=== PATIENT | female | born 1995 | race Caucasian/White ===

== ENCOUNTER 2016-12-03 20:45 | Inpatient (IN) | payer OTHER ==
[2016-12-03 21:25] VITALS: BMI 21.9
--- NOTE | 2016-12-03 21:32 | HP ---
COWS - Scale Resting Pulse: 2= [place] 101-120 Sweatin=Flushed/Facial Moisture Restless Observation: 3= Extraneous Movement Pupil Size: 2= Moderately Dilated Bone or Joint Aches: 2= Severe Diffuse Aches Runny Nose/ Eye Tearin= Runny Nose/Eyes GI Upset > 30mins: 3= Vomiting/Diarrhea Tremor Observation: 2= Slight Tremor Visible Yawning Observation: 2= >3x During Session Anxiety or Irritability: 2=Irritable/Anxious Goose Flesh Skin: 0=Smooth Skin COWS Score: 22 CIWA Score - CIWA Score Nausea/Vomitin Muscle Tremors: 3 Anxiety: 3 Agitation: 2 Paroxysmal Sweats: 2 Orientation: 0-Oriented Tacttile Disturbances: 2-Mild Itch/Numbness/Burn Auditory Disturbances: 2-Mild Harshness/Frighten Visual Disturbances: 2-Mild Sensitivity Headache: 2-Mild CIWA-Ar Total Score: 21 Admission ROS BHS - HPI Chief Complaint: i need help to stop using drugs heroin,xanax,cocaine and marijuana Allergies/Adverse Reactions: Allergies Allergy/AdvReac Type Severity Reaction Status Date / Time No Known Drug Allergies Allergy Verified 12/03/16 21:14 History of Present Illness: this 21 years old female with polysubstances dependence,heroin,cocaine,xanax and marijuana,withdrawal symptom, multiple admissions in detox,last [facility] in 09/20 seeking help to stop usings drugs history of anxiety and insomnia hepatitis c under the care of pmd longest period of sobriety 9 months Exam Limitations: No Limitations - Ebola screening Have you traveled outside of the country in the last 21 days: No (N) Have you had contact with anyone from an Ebola affected area: No Have you been sick,other than usual withdrawal symptoms: No Do you have a fever: No - Review of Systems Constitutional: Chills, Diaphoresis, Loss of Appetite, Malaise, Night Sweats, Changes in sleep, Weakness EENT: reports: Tearing, Nose Congestion Respiratory: reports: No Symptoms reported Cardiac: reports: Palpitations GI: reports: Diarrhea, Nausea, Poor Appetite, Vomiting : reports: No Symptoms Reported Musculoskeletal: reports: Back Pain, Joint Pain, Muscle Pain, Joint Stiffness Integumentary: reports: Dryness Neuro: reports: Headache, Seizure, Tremors Endocrine: reports: No Symptoms Reported Hematology: reports: No Symptoms Reported Psychiatric: reports: Anxious (insomnia) Patient History - Patient Medical History Hx Anemia: No Hx Asthma: No Hx Chronic Obstructive Pulmonary Disease (COPD): No Hx Cancer: No Hx Cardiac Disorders: No Hx Congestive Heart Failure: No Hx Hypertension: No Hx Hypercholesterolemia: No Hx Pacemaker: No HX Cerebrovascular Accident: No Hx Seizures: Yes (Drug-related/ Last episode 10/22) Hx Dementia: No Hx Diabetes: No Hx Gastrointestinal Disorders: No Hx Liver Disease: No Hx Genitourinary Disorders: No Hx Sexually Transmitted Disorders: No Hx Renal Disease (ESRD): No Hx Thyroid Disease: No Hx Human Immunodeficiency Virus (HIV): No (last 09/20 negagive) Hx Hepatitis C: Yes (under the care of pmd) Hx Depression: No Hx Suicide Attempt: Yes (cutter) Hx Bipolar Disorder: No Hx Schizophrenia: No Other Medical History: no suicida,no homicidal - Patient Surgical History Past Surgical History: No Hx Neurologic Surgery: No Hx Cataract Extraction: No Hx Cardiac Surgery: No Hx Lung Surgery: No Hx Breast Surgery: No Hx Breast Biopsy: No Hx Abdominal Surgery: No Hx Appendectomy: No Hx Cholecystectomy: No Hx Genitourinary Surgery: No Hx Section: No Hx Orthopedic Surgery: No Anesthesia Reaction: No - PPD History Previous Implant?: Yes Documented Results: Negative w/o proof Implanted On Prior R Admission?: No PPD to be Administered?: Yes - Reproductive History Patient is a Female of Child Bearing Age (11 -55 yrs old): Yes Last Menstrual Period: 10/01/17 Patient : No - Smoking Cessation Smoking history: Current every day smoker Have you smoked in the past 12 months: Yes Aproximately how many cigarettes per day: 20 Cigars Per Day: 0 Hx Chewing Tobacco Use: No Initiated information on smoking cessation: Yes 'Breaking Loose' booklet given: 12/03/16 - Substances Abused Heroin Route: Injection Frequency: Daily Amount used: 10 bags Age of first use: 14 Date of Last Use: 12/02/16 Alprazolam (Xanax) Route: Oral Frequency: Daily Amount used: 4mg Age of first use: 16 Date of Last Use: 12/02/16 Cocaine Route: Injection Frequency: Daily Amount used: $50 Age of first use: 14 Date of Last Use: 02/28/17 Marijuana/Hashish Route: Smoking Frequency: Daily Amount used: $20 Age of first use: 13 Date of Last Use: 12/03/16 Family Disease History - Family Disease History Family Disease History: Other: Father (alcohol) Admission Physical Exam [facility] - Vital Signs Vital Signs: Vital Signs - 24 hr 12/03/16 21:22 Temperature 97.1 F L Pulse Rate 113 H Respiratory 18 Rate Blood Pressure 129/85 - Physical General Appearance: Yes: Moderate Distress, Tremorous, Irritable, Sweating, Anxious HEENTM: Yes: Nasal Congestion, Rhinorrhea Respiratory: Yes: Lungs Clear Neck: Yes: Within Normal Limits Breast: Yes: Breast Exam Deferred Cardiology: Yes: Tachycardia Abdominal: Yes: Within Normal Limits, Normal Bowel Sounds, Non Tender, Flat, Soft Genitourinary: Yes: Within Normal Limits Back: Yes: Muscle Spasm Extremities: Yes: Tremors Neurological: Yes: Within Normal Limits, 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 intact, Fully Oriented, Alert, Motor Strength 5/5 Integumentary: Yes: Dry, Track [place], Other (cutter scars both forearms) Lymphatic: Yes: Within Normal Limits - Diagnostic (1) Opioid dependence with withdrawal Current Visit: Yes Status: Acute (2) Uncomplicated sedative, hypnotic or anxiolytic withdrawal Current Visit: Yes Status: Acute (3) Cocaine dependence Current Visit: Yes Status: Acute (4) Cannabis dependence Current Visit: Yes Status: Acute (5) Seizure Current Visit: Yes Status: Acute (6) Nicotine dependence Current Visit: Yes Status: Acute (7) Anxiety Current Visit: Yes Status: Acute (8) Insomnia Current Visit: Yes Status: Acute (9) Hepatitis C Current Visit: Yes Status: Acute Cleared for Admission [facility] - Detox or Rehab [facility] Level of Care: Medically Managed Detox Regimen/Protocol: Methadone/Valium [facility] Breath Alcohol Content Breath Alcohol Content: 0 Urine Pregancy Test - Result Urine Test Results: Negative- NO Line Present Urine Drug Screen - Results Drug Screen Negative: No Urine Drug Screen Results: THC-Marijuana, DIAMOND-Cocaine, OPI-Opiates, BZO- Benzodiazepines, OXY-Oxycodone
[2016-12-03] MEDS ORDERED: MAGNESIUM CITRATE 300 ML BOTTLE PO PRN (21:41)
[2016-12-03] MEDS ORDERED: ACETAMINOPHEN 325 MG TABLET (FP) PO PRN (21:41)
[2016-12-03] MEDS ORDERED: P-EPHED 60MG/TRIPROLIDI 2.5MG TABLET PO PRN (21:41)
[2016-12-03] MEDS ORDERED: MAGNESIUM HYDROX 2400MG/30ML ORAL SUSPENSION 30 ML CUP PO PRN (21:41)
[2016-12-03] MEDS ORDERED: IBUPROFEN 400 MG TABLET (FP) PO PRN (21:41)
[2016-12-03] MEDS ORDERED: diphenhydrAMINE HCL 50 MG CAPSULE PO PRN (21:41)
[2016-12-03] MEDS ORDERED: hydrOXYzine PAMOATE 25 MG CAPSULE (FP) PO PRN (21:41)
[2016-12-03] MEDS ORDERED: diazePAM 5 MG TABLET PO ONE (21:41)
[2016-12-03] MEDS ORDERED: MENTHOL/PHENOL 1 EACH UD MM PRN (21:41)
[2016-12-03] MEDS ORDERED: guaiFENesin/D-METHORPHAN HB 10 ML UNIT-DOSE CUPS PO PRN (21:41)
[2016-12-03] MEDS ORDERED: LOPERAMIDE HCL 2 MG CAPSULE PO PRN (21:41)
[2016-12-03] MEDS ORDERED: METHADONE HCL 10 MG TABLET (FOR DETOX USE ONLY) PO ONE ×2 (21:41→23:00)
[2016-12-03] MEDS ORDERED: NICOTINE POLACRILEX 2 MG GUM BC PRN (21:41)
[2016-12-03] MEDS ORDERED: MAG HYDROX/AL HYDROX/SIMETH 30 ML UNIT-DOSE CUP PO PRN (21:41)
[2016-12-03] MEDS ORDERED: diazePAM 5 MG TABLET PO PRN (21:41)
[2016-12-03] MEDS ORDERED: CYCLOBENZAPRINE HCL 10 MG TABLET (FP) PO PRN (21:45)
[2016-12-03] MEDS ORDERED: THIAMINE HCL 100 MG TABLET (FP) PO SCH (22:00)
[2016-12-03] MEDS: cloNIDine HCL 0.1 MG TABLET PO SCH (22:28)
[2016-12-03 22:49] LABS: URINE APPEARANCE CLEAR; URINE BILIRUBIN NEGATIVE (NEGATIVE); URINE BLOOD NEGATIVE (NEGATIVE); URINE COLOR YELLOW; URINE GLUCOSE (UA) NEGATIVE (NEGATIVE); URINE KETONE TRACE (NEGATIVE); URINE LEUK ESTERASE NEGATIVE (NEGATIVE); URINE NITRITE NEGATIVE (NEGATIVE); URINE PROTEIN NEGATIVE (NEGATIVE); URINE UROBILINOGEN NEGATIVE E.U./dl (0.2-1.0)
[2016-12-03] MEDS: diazePAM 5 MG TABLET PO SCH (22:53)
[2016-12-04] MEDS: diazePAM 5 MG TABLET PO SCH ×2 (07:30→13:53)
--- NOTE | 2016-12-04 09:47 | CONSULT ---
[facility] Psychiatric Consult - Data Date of interview: 12/04/16 Admission source: [facility] Identifying data: This is 21 years old female with no psychiatric hospitalization history intoxicated with: Cannabis, Cocaine, Heroin, Xanax, Nictoine Substance Abuse History: - Smoking Cessation. Smoking history: Current every day smoker. Have you smoked in the past 12 months: Yes. Aproximately how many cigarettes per day: 20. Cigars Per Day: 0. Hx Chewing Tobacco Use: No. Initiated information on smoking cessation: Yes. 'Breaking Loose' booklet given : 12/03/16. - Substances Abused. Heroin. Route: Injection. Frequency: Daily. Amount used: 10 bags. Age of first use: 14. Date of Last Use: . Alprazolam (Xanax). Route: Oral. Frequency: Daily. Amount used: 4mg. Age of first use: 16. Date of Last Use: 12/02/16. Cocaine. Route: Injection. Frequency: Daily. Amount used: $50. Age of first use: 14. Date of Last Use: 12/03/16. Marijuana/Hashish. Route: Smoking. Frequency: Daily. Amount used: $20. Age of first use: 13. Date of Last Use: 12/03/16 Medical History: Denies Psychiatric History: Reports insomnia, reprotsd taking Trazpodone 100mg po qhs with good response Physical/Sexual Abuse/Trauma History: Denies Additional Comment: Trazpodone 100mg po qhs Mental Status Exam - Mental Status Exam Alert and Oriented to: Person Cognitive Function: Fair Patient Appearance: Unkempt Mood: Sad Affect: Flat Patient Behavior: Sedated Speech Pattern: Delayed Voice Loudness: Mildly Soft/Quiet Thought Process: Circumstantial Thought Disorder: Being Controlled Hallucinations: Denies Suicidal Ideation: Denies Homicidal Ideation: Denies Insight/Judgement: Fair Sleep: Fair Appetite: Fair Muscle strength/Tone: Mild Hypotonicity Gait/Station: Shuffling Additional Comments: Trazpodone 100mg po qhs Psychiatric Findings - Problem List (Aldrich 1, 2,3) (1) Anxiety Current Visit: Yes Status: Acute (2) Cannabis dependence Current Visit: Yes Status: Acute (3) Cocaine dependence Current Visit: Yes Status: Acute (4) Nicotine dependence Current Visit: Yes Status: Acute (5) Opioid dependence with withdrawal Current Visit: Yes Status: Acute (6) Uncomplicated sedative, hypnotic or anxiolytic withdrawal Current Visit: Yes Status: Acute (7) Drug-induced mood disorder Current Visit: Yes Status: Acute - Initial Treatment Plan Initial Treatment Plan: Trazpodone 100mg po qhs
[2016-12-04] MEDS ORDERED: NICOTINE 21 MG/24 HOURS TOPICAL PATCH TD SCH (10:00)
[2016-12-04] MEDS ORDERED: METHADONE HCL 10 MG TABLET (FOR DETOX USE ONLY) PO SCH (10:00)
[2016-12-04] MEDS ORDERED: PRENATAL VITAMINS W/ FOLIC ACID TABLET (FP) PO SCH (10:00)
[2016-12-04 10:06] LABS: MCH 24.2 pg (25.7-33.7); MCHC 32.4 g/dl (32.0-36.0); MEAN CELL VOLUME 74.7 fl (80-96); PLATELET COUNT 187 K/MM3 (134-434); RDW 15.2 % (11.6-15.6); WHITE BLOOD COUNT 7.7 K/mm3 (4.0-10.0)
[2016-12-04] MEDS: cloNIDine HCL 0.1 MG TABLET PO SCH (10:31)
[2016-12-04 11:16] LABS: ALBUMIN 3.4 g/dl (3.4-5.0); ALK PHOS 72 U/L (45-117); ANION GAP 9 (8-16); BILIRUBIN,TOTAL 0.9 mg/dL (0.2-1.0); CALCIUM 8.6 mg/dL (8.5-10.1); CO2 27 mmol/L (21-32); GLUCOSE,RANDOM 82 mg/dL (74-106); SGOT/AST 9 U/L (15-37); SGPT/ALT 20 U/L (12-78); TOT PROT 6.2 g/dl (6.4-8.2)
--- NOTE | 2016-12-04 11:58 | PN ---
[facility] CIWA - CIWA Score Nausea/Vomitin-Mild Nausea/No Vomiting Muscle Tremors: 4-Moderate,w/Arms Extend Anxiety: 4-Mod. Anxious/Guarded Agitation: 4-Moderately Restless Paroxysmal Sweats: 3 Orientation: 0-Oriented Tacttile Disturbances: 0-None Auditory Disturbances: 0-None Visual Disturbances: 0-None Headache: 1-Very Mild CIWA-Ar Total Score: 17 BHS COWS - Scale Resting Pulse: 1= [place] 81-100 Sweatin=Flushed/Facial Moisture Restless Observation: 1= Difficult to Sit Still Pupil Size: 0= Normal to Room Light Bone or Joint Aches: 2= Severe Diffuse Aches Runny Nose/ Eye Tearin= Runny Nose/Eyes GI Upset > 30mins: 2= Nausea/Diarrhea Tremor Observation of Outstretched Hands: 2= Slight Tremor Visible Yawning Observation: 2= >3x During Session Anxiety or Irritability: 2=Irritable/Anxious Goose Flesh Skin: 0=Smooth Skin COWS Score: 16 S Progress Note (SOAP) Subjective: agitation anxiety body aches sweats headache irritable Objective: 12/04/16 11:52 Vital Signs Temperature 97.5 F L 12/04/16 10:22 Pulse Rate 83 12/04/16 10:22 Respiratory Rate 20 12/04/16 10:22 Blood Pressure 129/93 12/04/16 10:22 O2 Sat by Pulse Oximetry (%) Laboratory Tests 12/03/16 12/04/16 12/04/16 19:38 07:00 07:00 WBC 7.7 RBC 4.80 Hgb 11.6 Hct 35.9 MCV 74.7 L MCHC 32.4 RDW 15.2 Plt Count 187 MPV 9.0 Sodium 142 Potassium 3.8 Chloride 106 Carbon Dioxide 27 Anion Gap 9 BUN 19 H Creatinine 1.0 Creat Clearance w eGFR > 60 Random Glucose 82 Calcium 8.6 Total Bilirubin 0.9 AST 9 L ALT 20 Alkaline Phosphatase 72 Total Protein 6.2 L Albumin 3.4 Urine Color Yellow Urine Appearance Clear Urine pH 7.0 Ur Specific [place] 1.025 Urine Protein Negative Urine Glucose (UA) Negative Urine Ketones Trace H Urine Blood Negative Urine Nitrite Negative Urine Bilirubin Negative Urine Urobilinogen Negative Ur Leukocyte Esterase Negative awake/alert ambulating no acute distress Assessment: 12/04/16 11:52 withdrawal sx Plan: continue detox increase fluids
[2016-12-04 13:26] VITALS: BP 108/62; PULSE 103; TEMP 97.3
--- NOTE | 2016-12-04 13:54 | EKG ---
Test Reason : Blood Pressure : / mmHG Vent. Rate : 063 BPM Atrial Rate : 063 BPM P-R Int : 168 ms QRS Dur : 094 ms QT Int : 412 ms P-R-T Axes : 072 087 067 degrees QTc Int : 421 ms NORMAL SINUS RHYTHM POSSIBLE LEFT ATRIAL ENLARGEMENT BORDERLINE ECG NO PREVIOUS ECGS AVAILABLE Confirmed by NAVEED BOSS MD ([id number]) on 12/04/2016 1:53:51 PM Referred By: Confirmed By:NAVEED BOSS MD
[2016-12-05] MEDS ORDERED: diazePAM 5 MG TABLET PO SCH (10:00)
[2016-12-05] MEDS ORDERED: METHADONE HCL 5 MG TABLET (FOR DETOX USE ONLY) PO SCH (10:00)
[2016-12-07] MEDS ORDERED: METHADONE HCL 10 MG TABLET (FOR DETOX USE ONLY) PO SCH (10:00)
[2016-12-07] MEDS ORDERED: diazePAM 5 MG TABLET PO SCH (10:00)
[2016-12-08] MEDS ORDERED: METHADONE HCL 5 MG TABLET (FOR DETOX USE ONLY) PO SCH (06:00)
--- NOTE | 2017-02-13 14:52 | DS ---
[facility] Detox Discharge Summary Admission Date: 12/03/16 Discharge Date: 12/04/16 - History Present History: Cannabis Dependence, Cocaine Dependence - Physical Exam Results Vital Signs: Vital Signs Temperature 97.3 F L 12/04/16 13:25 Pulse Rate 103 H 12/04/16 13:25 Respiratory Rate 20 12/04/16 13:25 Blood Pressure 108/62 12/04/16 13:25 O2 Sat by Pulse Oximetry (%) - Treatment Hospital Course: Detox Protocol Followed - Medication Discharge Medications: Ambulatory Orders Trazodone HCl [Desyrel -] 200 mg PO HS 11/29/16 Topiramate [Topiramate ER] 200 mg PO DAILY #30 cap.spr.24 01/27/17 Trazodone HCl [Desyrel -] 200 mg PO HS #30 tablet 01/27/17 - Diagnosis (1) Nicotine dependence Status: Acute Qualifiers: Nicotine product type: cigarettes Substance use status: uncomplicated Qualified Code(s): F17.210 - Nicotine dependence, cigarettes, uncomplicated (2) Opioid dependence with withdrawal Status: Chronic (3) Seizure Status: Chronic (4) Uncomplicated sedative, hypnotic or anxiolytic withdrawal Status: Chronic (5) Cannabis dependence Status: Chronic (6) Cocaine dependence Status: Chronic Qualifiers: Substance use status: uncomplicated Qualified Code(s): F14.20 - Cocaine dependence, uncomplicated (7) Hepatitis C Status: Chronic Qualifiers: Viral hepatitis chronicity: chronic Hepatic coma status: without hepatic coma Qualified Code(s): B18.2 - Chronic viral hepatitis C (8) Anxiety Status: Suspected - AMA Did Patient Leave Against Medical Advice: Yes (WANTS TO LEAVE UNIT )
== END 2016-12-04 14:27 | disposition left against medical advice (07) | DRG 743 ==
LOC: YASAS 20:45 → Y6N 21:25
PROVIDERS: ADMIT Internal Medicine Addiction Medicine; ATTEND Internal Medicine Addiction Medicine
PROC: HZ2ZZZZ Detoxification Services for Substance Abuse Treatment (ICD-10-PCS; principal; 2016-12-04)
DX: F11.23 Opioid dependence with withdrawal (principal); B18.2 Chronic viral hepatitis C; F13.230 Sedative, hypnotic or anxiolytic dependence with withdrawal, uncomplicated; F14.20 Cocaine dependence, uncomplicated; F12.20 Cannabis dependence, uncomplicated; F17.210 Nicotine dependence, cigarettes, uncomplicated; F19.24 Other psychoactive substance dependence with psychoactive substance-induced mood disorder; F41.8 Other specified anxiety disorders; G47.00 Insomnia, unspecified; G40.909 Epilepsy, unspecified, not intractable, without status epilepticus
CPT/HCPCS: 36415; 80053; 81003; 85027; 86593; 87522; 93005; 93010

== ENCOUNTER 2017-01-26 14:09 | Inpatient (IN) | payer OTHER ==
[2017-01-26 16:09] VITALS: BMI 21.7
--- NOTE | 2017-01-26 16:52 | HP ---
COWS - Scale Resting Pulse: 0= [place] 80 or Below Sweatin=Flushed/Facial Moisture Restless Observation: 1= Difficult to Sit Still Pupil Size: 2= Moderately Dilated Bone or Joint Aches: 2= Severe Diffuse Aches Runny Nose/ Eye Tearin= Runny Nose/Eyes GI Upset > 30mins: 2= Nausea/Diarrhea Tremor Observation: 2= Slight Tremor Visible Yawning Observation: 1= 1-2x During Session Anxiety or Irritability: 2=Irritable/Anxious Goose Flesh Skin: 0=Smooth Skin COWS Score: 16 CIWA Score - CIWA Score Nausea/Vomitin Muscle Tremors: 4-Moderate,w/Arms Extend Anxiety: 4-Mod. Anxious/Guarded Agitation: 4-Moderately Restless Paroxysmal Sweats: 3 Orientation: 0-Oriented Tacttile Disturbances: 0-None Auditory Disturbances: 0-None Visual Disturbances: 0-None Headache: 0-None Present CIWA-Ar Total Score: 18 Admission ROS BHS - HPI Chief Complaint: Withdrawal sx. Allergies/Adverse Reactions: Allergies Allergy/AdvReac Type Severity Reaction Status Date / Time No Known Drug Allergies Allergy Verified 12/03/16 21:14 History of Present Illness: 21 y/o woman with a long hx. of heroin & xanax dependence is admitted for detox.pt. has been in previous detox, denies significant period drug free. Exam Limitations: No Limitations - Ebola screening Have you traveled outside of the country in the last 21 days: No Have you had contact with anyone from an Ebola affected area: No Have you been sick,other than usual withdrawal symptoms: No Do you have a fever: No - Review of Systems Constitutional: Diaphoresis EENT: reports: Nose Congestion Respiratory: reports: No Symptoms reported Cardiac: reports: No Symptoms Reported GI: reports: Nausea, Abdominal cramping : reports: No Symptoms Reported Musculoskeletal: reports: Back Pain, Joint Pain, Muscle Pain Integumentary: reports: Sweating Neuro: reports: Seizure (a few months ago,can't remember when), Tremors Endocrine: reports: No Symptoms Reported Hematology: reports: No Symptoms Reported Psychiatric: reports: No Sypmtoms Reported Other Systems: Reviewed and Negative Patient History - Patient Medical History Hx Anemia: No Hx Asthma: No Hx Chronic Obstructive Pulmonary Disease (COPD): No Hx Cancer: No Hx Cardiac Disorders: No Hx Congestive Heart Failure: No Hx Hypertension: No Hx Hypercholesterolemia: No Hx Pacemaker: No HX Cerebrovascular Accident: No Hx Seizures: Yes (Drug-related/ Last episode 10/22) Hx Dementia: No Hx Diabetes: No Hx Gastrointestinal Disorders: No Hx Liver Disease: No Hx Genitourinary Disorders: No Hx Sexually Transmitted Disorders: No Hx Renal Disease (ESRD): No Hx Thyroid Disease: No Hx Human Immunodeficiency Virus (HIV): No Hx Hepatitis C: Yes (under the care of pmd) Hx Depression: No Hx Suicide Attempt: Yes (cutter) Hx Bipolar Disorder: No Hx Schizophrenia: No Other Medical History: Anxiety - Patient Surgical History Past Surgical History: No Hx Neurologic Surgery: No Hx Cataract Extraction: No Hx Cardiac Surgery: No Hx Lung Surgery: No Hx Breast Surgery: No Hx Breast Biopsy: No Hx Abdominal Surgery: No Hx Appendectomy: No Hx Cholecystectomy: No Hx Genitourinary Surgery: No Hx Section: No Hx Orthopedic Surgery: No Anesthesia Reaction: No - PPD History Previous Implant?: Yes Date: 12/05/16 (left before it could be read) PPD to be Administered?: Yes - Reproductive History Patient is a Female of Child Bearing Age (11 -55 yrs old): Yes Last Menstrual Period: 01/22/17 Patient : No - Smoking Cessation Smoking history: Current every day smoker Have you smoked in the past 12 months: Yes Aproximately how many cigarettes per day: 20 Cigars Per Day: 0 Hx Chewing Tobacco Use: No Initiated information on smoking cessation: Yes 'Breaking Loose' booklet given: 01/26/17 - Substance & Tx. History Hx Alcohol Use: No Hx Substance Use: Yes Substance Use Type: Cocaine, Heroin, Tranquilizers Hx Substance Use Treatment: Yes (detox) - Substances Abused Heroin Route: Injection Frequency: Daily Amount used: 10 bags Age of first use: 14 Date of Last Use: 01/25/17 Alprazolam (Xanax) Route: Oral Frequency: Daily Amount used: 4-6mg Age of first use: 14 Date of Last Use: 01/25/17 Cocaine Route: Injection Frequency: Daily Amount used: 1 gm Age of first use: 14 Date of Last Use: 01/25/17 Family Disease History - Family Disease History Family Disease History: Other: Father (alcohol) Admission Physical Exam [facility] - Vital Signs Vital Signs: Vital Signs - 24 hr 01/26/17 16:03 Temperature 96.1 F L Pulse Rate 57 L Respiratory 18 Rate Blood Pressure 118/63 - Physical General Appearance: Yes: Tremorous, Irritable, Sweating, Anxious HEENTM: Yes: Nasal Congestion, Rhinorrhea Respiratory: Yes: Chest Non-Tender, Lungs Clear Neck: Yes: Supple Breast: Yes: Breast Exam Deferred Cardiology: Yes: Regular Rhythm, Regular Rate, S1, S2 Abdominal: Yes: Normal Bowel Sounds, Non Tender, Flat, Soft Genitourinary: Yes: Within Normal Limits Back: Yes: Within Normal Limits Musculoskeletal: Yes: Within Normal Limits Extremities: Yes: Tremors Neurological: Yes: Fully Oriented, Alert Integumentary: Yes: Diaphoresis Lymphatic: Yes: Within Normal Limits - Diagnostic (1) Opioid dependence with withdrawal Current Visit: Yes Status: Acute (2) Uncomplicated sedative, hypnotic or anxiolytic withdrawal Current Visit: Yes Status: Acute (3) Cannabis dependence Current Visit: Yes Status: Chronic (4) Cocaine dependence Current Visit: Yes Status: Chronic Qualifiers: Substance use status: uncomplicated Qualified Code(s): F14.20 - Cocaine dependence, uncomplicated (5) Hepatitis C Current Visit: No Status: Chronic Qualifiers: Viral hepatitis chronicity: chronic Hepatic coma status: without hepatic coma Qualified Code(s): B18.2 - Chronic viral hepatitis C Cleared for Admission [facility] - Detox or Rehab [facility] Level of Care: Medically Managed Detox Regimen/Protocol: Methadone/Valium [facility] Breath Alcohol Content Breath Alcohol Content: 0 Urine Pregancy Test - Result Urine Test Results: Negative- NO Line Present Urine Drug Screen - Results Drug Screen Negative: No Urine Drug Screen Results: THC-Marijuana, DIAMOND-Cocaine, OPI-Opiates, BZO- Benzodiazepines
[2017-01-26] MEDS ORDERED: IBUPROFEN 400 MG TABLET (FP) PO PRN (17:06)
[2017-01-26] MEDS ORDERED: hydrOXYzine PAMOATE 50 MG CAPSULE (FP) PO PRN (17:06)
[2017-01-26] MEDS ORDERED: LOPERAMIDE HCL 2 MG CAPSULE PO PRN (17:06)
[2017-01-26] MEDS ORDERED: diazePAM 5 MG TABLET PO PRN (17:06)
[2017-01-26] MEDS ORDERED: MAGNESIUM HYDROX 2400MG/30ML ORAL SUSPENSION 30 ML CUP PO PRN (17:06)
[2017-01-26] MEDS ORDERED: diphenhydrAMINE HCL 50 MG CAPSULE PO PRN (17:06)
[2017-01-26] MEDS ORDERED: ACETAMINOPHEN 325 MG TABLET (FP) PO PRN (17:06)
[2017-01-26] MEDS ORDERED: MAG HYDROX/AL HYDROX/SIMETH 30 ML UNIT-DOSE CUP PO PRN (17:06)
[2017-01-26] MEDS ORDERED: MAGNESIUM CITRATE 300 ML BOTTLE PO PRN (17:06)
[2017-01-26] MEDS ORDERED: guaiFENesin/D-METHORPHAN HB 10 ML UNIT-DOSE CUPS PO PRN (17:06)
[2017-01-26] MEDS ORDERED: MENTHOL/PHENOL 1 EACH UD MM PRN (17:06)
[2017-01-26] MEDS ORDERED: NICOTINE POLACRILEX 2 MG GUM BC PRN (17:06)
[2017-01-26] MEDS ORDERED: P-EPHED 60MG/TRIPROLIDI 2.5MG TABLET PO PRN (17:06)
[2017-01-26] MEDS ORDERED: METHADONE HCL 10 MG TABLET (FOR DETOX USE ONLY) PO ONE ×2 (17:45→23:00)
[2017-01-26] MEDS ORDERED: diazePAM 5 MG TABLET PO ONE (17:45)
[2017-01-26] MEDS: NICOTINE 21 MG/24 HOURS TOPICAL PATCH TD SCH (18:25)
[2017-01-26] MEDS ORDERED: THIAMINE HCL 100 MG TABLET (FP) PO SCH (22:00)
[2017-01-26] MEDS: diazePAM 5 MG TABLET PO SCH (23:34)
[2017-01-27] MEDS: diazePAM 5 MG TABLET PO SCH (07:04)
[2017-01-27 09:13] VITALS: BP 106/66; PULSE 52; TEMP 98.8
[2017-01-27] MEDS ORDERED: METHADONE HCL 10 MG TABLET (FOR DETOX USE ONLY) PO SCH (10:00)
[2017-01-27] MEDS ORDERED: TOPIRAMATE 100 MG TABLET PO SCH (10:00)
[2017-01-27] MEDS ORDERED: PRENATAL VITAMINS W/ FOLIC ACID TABLET (FP) PO SCH (10:00)
[2017-01-27 10:07] LABS: MCH 23.9 pg (25.7-33.7); MEAN CELL VOLUME 74.8 fl (80-96); MEAN PLT VOLUME 9.1 fl (7.5-11.1); PLATELET COUNT 180 K/MM3 (134-434); RDW 15.2 % (11.6-15.6); WHITE BLOOD COUNT 7.7 K/mm3 (4.0-10.0)
[2017-01-27] MEDS: NICOTINE 21 MG/24 HOURS TOPICAL PATCH TD SCH (10:15)
[2017-01-27 10:32] LABS: ALBUMIN 3.2 g/dl (3.4-5.0); ALK PHOS 63 U/L (45-117); ANION GAP 7 (8-16); BILIRUBIN,TOTAL 0.6 mg/dL (0.2-1.0); CO2 28 mmol/L (21-32); COCKROFT - GAULT 111.6475; CREATININE 0.8 mg/dL (0.55-1.02); GLUCOSE,RANDOM 87 mg/dL (74-106); SGOT/AST 33 U/L (15-37); SGPT/ALT 27 U/L (12-78); TOT PROT 5.9 g/dl (6.4-8.2)
--- NOTE | 2017-01-27 10:47 | PN ---
S CIWA - CIWA Score Nausea/Vomitin Muscle Tremors: 2 Anxiety: 4-Mod. Anxious/Guarded Agitation: 4-Moderately Restless Paroxysmal Sweats: 2 Orientation: 0-Oriented Tacttile Disturbances: 1-Very Mild Itch/Numbness Auditory Disturbances: 0-None Visual Disturbances: 0-None Headache: 0-None Present CIWA-Ar Total Score: 16 BHS COWS - Scale Resting Pulse: 0= [place] 80 or Below Sweatin= Chills/Flushing Restless Observation: 1= Difficult to Sit Still Pupil Size: 1= Pupils >than Normal Bone or Joint Aches: 1= Mild Discomfort Runny Nose/ Eye Tearin= Nasal Congestion GI Upset > 30mins: 1= Stomach Cramp Tremor Observation of Outstretched Hands: 1= Tremor Levels, Not Seen Yawning Observation: 0= None Anxiety or Irritability: 2=Irritable/Anxious Goose Flesh Skin: 0=Smooth Skin COWS Score: 9 BHS Progress Note (SOAP) Subjective: interrupted sleep, sweats, nausea , irritable Objective: 01/27/17 10:43 Vital Signs Temperature 98.8 F 01/27/17 09:12 Pulse Rate 52 L 01/27/17 09:12 Respiratory Rate 18 01/27/17 09:12 Blood Pressure 106/66 01/27/17 09:12 O2 Sat by Pulse Oximetry (%) Laboratory Tests 01/27/17 01/27/17 07:00 07:00 WBC 7.7 RBC 5.18 Hgb 12.4 Hct 38.7 MCV 74.8 L MCHC 32.0 RDW 15.2 Plt Count 180 MPV 9.1 Sodium 140 Potassium 4.0 Chloride 105 Carbon Dioxide 28 Anion Gap 7 L BUN 13 D Creatinine 0.8 Creat Clearance w eGFR > 60 Random Glucose 87 Calcium 8.0 L Total Bilirubin 0.6 D AST 33 D ALT 27 D Alkaline Phosphatase 63 Total Protein 5.9 L Albumin 3.2 L pt aox3 in nad ambulating Assessment: 01/27/17 10:44 withdrawal sx;s ' Plan: cont detox increase fluids [place] [facility]
--- NOTE | 2017-01-27 10:49 | CONSULT ---
[facility] Psychiatric Consult - Data Date of interview: 01/27/17 Admission source: [facility] Identifying data: This is 21 years old female with no psychiatric hospitalization history ibntoxicated with: Opioids, Cocaine, Xanax, Nicotine Substance Abuse History: - Smoking Cessation. Smoking history: Current every day smoker. Have you smoked in the past 12 months: Yes. Aproximately how many cigarettes per day: 20. Cigars Per Day: 0. Hx Chewing Tobacco Use: No. Initiated information on smoking cessation: Yes. 'Breaking Loose' booklet given : 01/26/17. - Substance & Tx. History. Hx Alcohol Use: No. Hx Substance Use: Yes. Substance Use Type: Cocaine, Heroin, Tranquilizers. Hx Substance Use Treatment: Yes (detox). - Substances Abused. Heroin. Route: Injection. Frequency: Daily. Amount used: 10 bags. Age of first use: 14. Date of Last Use: 01/25/17. Alprazolam (Xanax). Route: Oral. Frequency: Daily. Amount used: 4-6mg. Age of first use: 14. Date of Last Use: 01/25/17. Cocaine. Route: Injection. Frequency: Daily. Amount used: 1 gm. Age of first use: 14. Date of Last Use: 01/25/17 Medical History: Seizure history, Syncope history, HepC+ history Psychiatric History: Patient reports history of depression and anxiety, reports taking prior to admission: Trazodone 200mjg po qhs. Topamax 200mg poqd Physical/Sexual Abuse/Trauma History: Denies Additional Comment: Trazodone 200mjg po qhs. Topamax 200mg poqd Mental Status Exam - Mental Status Exam Alert and Oriented to: Person Cognitive Function: Fair Patient Appearance: Unkempt Mood: Anxious Affect: Mood Congruent Patient Behavior: Talkative, Cooperative Speech Pattern: Appropriate Voice Loudness: Mildly Soft/Quiet Thought Process: Goal Oriented Thought Disorder: Being Controlled Hallucinations: Denies Suicidal Ideation: Denies Homicidal Ideation: Denies Insight/Judgement: Fair Sleep: Difficulty falling asleep Appetite: Fair Muscle strength/Tone: Normal Gait/Station: Normal Additional Comments: Trazodone 200mjg po qhs. Topamax 200mg poqd Psychiatric Findings - Problem List (Angie 1, 2,3) (1) Opioid dependence with withdrawal Current Visit: Yes Status: Acute (2) Uncomplicated sedative, hypnotic or anxiolytic withdrawal Current Visit: Yes Status: Acute (3) Cannabis dependence Current Visit: Yes Status: Chronic (4) Cocaine dependence Current Visit: Yes Status: Chronic Qualifiers: Substance use status: uncomplicated Qualified Code(s): F14.20 - Cocaine dependence, uncomplicated (5) Nicotine dependence Current Visit: No Status: Acute (6) Drug-induced mood disorder Current Visit: No Status: Suspected (7) Insomnia Current Visit: No Status: Suspected - Initial Treatment Plan Initial Treatment Plan: Trazodone 200mjg po qhs. Topamax 200mg poqd
--- NOTE | 2017-01-27 11:11 | EKG ---
Test Reason : Blood Pressure : / mmHG Vent. Rate : 047 BPM Atrial Rate : 047 BPM P-R Int : 130 ms QRS Dur : 098 ms QT Int : 458 ms P-R-T Axes : 044 088 076 degrees QTc Int : 405 ms SINUS BRADYCARDIA WITH SINUS ARRHYTHMIA OTHERWISE NORMAL ECG WHEN COMPARED WITH ECG OF 03-DEC-2016 22:05, NO SIGNIFICANT CHANGE WAS FOUND Confirmed by HIEU HEARN MD ([id number]) on 01/27/2017 11:11:10 AM Referred By: Jacob Yepez Confirmed By:HIEU HEARN MD
[2017-01-27] MEDS ORDERED: traZODone HCL 100 MG TABLET (FP) PO SCH (22:00)
[2017-01-28] MEDS ORDERED: diazePAM 5 MG TABLET PO SCH (10:00)
[2017-01-28] MEDS ORDERED: METHADONE HCL 5 MG TABLET (FOR DETOX USE ONLY) PO SCH (10:00)
--- NOTE | 2017-01-28 13:31 | DS ---
[facility] Detox Discharge Summary Admission Date: 01/26/17 Discharge Date: 01/27/17 - History Present History: Cannabis Dependence, Cocaine Dependence, Opioid Dependence, Sedative Dependence Pertinent Past History: Hep C Seizure - Physical Exam Results Vital Signs: Vital Signs Temperature 98.8 F 01/27/17 09:12 Pulse Rate 52 L 01/27/17 09:12 Respiratory Rate 18 01/27/17 09:12 Blood Pressure 106/66 01/27/17 09:12 O2 Sat by Pulse Oximetry (%) Pertinent Admission Physical Exam Findings: Withdrawal sx. Laboratory Last Values WBC 7.7 K/mm3 (4.0-10.0) 01/27/17 07:00 RBC 5.18 M/mm3 (3.60-5.2) 01/27/17 07:00 Hgb 12.4 GM/dL (10.7-15.3) 01/27/17 07:00 Hct 38.7 % (32.4-45.2) 01/27/17 07:00 MCV 74.8 fl (80-96) L 01/27/17 07:00 MCHC 32.0 g/dl (32.0-36.0) 01/27/17 07:00 RDW 15.2 % (11.6-15.6) 01/27/17 07:00 Plt Count 180 K/MM3 (134-434) 01/27/17 07:00 MPV 9.1 fl (7.5-11.1) 01/27/17 07:00 Sodium 140 mmol/L (136-145) 01/27/17 07:00 Potassium 4.0 mmol/L (3.5-5.1) 01/27/17 07:00 Chloride 105 mmol/L (98-107) 01/27/17 07:00 Carbon Dioxide 28 mmol/L (21-32) 01/27/17 07:00 Anion Gap 7 (8-16) L 01/27/17 07:00 BUN 13 mg/dL (7-18) D 01/27/17 07:00 Creatinine 0.8 mg/dL (0.55-1.02) 01/27/17 07:00 Creat Clearance w eGFR > 60 (>60) 01/27/17 07:00 Random Glucose 87 mg/dL (74-106) 01/27/17 07:00 Calcium 8.0 mg/dL (8.5-10.1) L 01/27/17 07:00 Total Bilirubin 0.6 mg/dL (0.2-1.0) D 01/27/17 07:00 AST 33 U/L (15-37) D 01/27/17 07:00 ALT 27 U/L (12-78) D 01/27/17 07:00 Alkaline Phosphatase 63 U/L (45-117) 01/27/17 07:00 Total Protein 5.9 g/dl (6.4-8.2) L 01/27/17 07:00 Albumin 3.2 g/dl (3.4-5.0) L 01/27/17 07:00 RPR Titer Nonreactive (NONREACTIVE) 01/27/17 07:00 labs noted - Treatment Patient has Accepted a Rehab Referral to: 12 step meetings - Medication Discharge Medications: Ambulatory Orders Trazodone HCl [Desyrel -] 200 mg PO HS 11/29/16 Topiramate [Topiramate ER] 200 mg PO DAILY #30 cap.spr.24 01/27/17 Trazodone HCl [Desyrel -] 200 mg PO HS #30 tablet 01/27/17 - Diagnosis (1) Opioid dependence with withdrawal Status: Acute (2) Uncomplicated sedative, hypnotic or anxiolytic withdrawal Status: Acute (3) Cannabis dependence Status: Chronic (4) Cocaine dependence Status: Chronic Qualifiers: Substance use status: uncomplicated Qualified Code(s): F14.20 - Cocaine dependence, uncomplicated (5) Hepatitis C Status: Chronic Qualifiers: Viral hepatitis chronicity: chronic Hepatic coma status: without hepatic coma Qualified Code(s): B18.2 - Chronic viral hepatitis C - AMA Did Patient Leave Against Medical Advice: No
[2017-01-30] MEDS ORDERED: diazePAM 5 MG TABLET PO SCH (10:00)
[2017-01-30] MEDS ORDERED: METHADONE HCL 10 MG TABLET (FOR DETOX USE ONLY) PO SCH (10:00)
[2017-01-31] MEDS ORDERED: METHADONE HCL 5 MG TABLET (FOR DETOX USE ONLY) PO SCH (06:00)
== END 2017-01-27 12:50 | disposition home or self-care (01) | DRG 744 ==
LOC: YASAS 14:09 → Y6N 17:03
PROVIDERS: ADMIT Internal Medicine; ATTEND Internal Medicine Addiction Medicine
PROC: HZ2ZZZZ Detoxification Services for Substance Abuse Treatment (ICD-10-PCS; principal; 2017-01-26)
DX: F11.23 Opioid dependence with withdrawal (principal); B18.2 Chronic viral hepatitis C; F13.230 Sedative, hypnotic or anxiolytic dependence with withdrawal, uncomplicated; F14.20 Cocaine dependence, uncomplicated; F12.20 Cannabis dependence, uncomplicated; F17.210 Nicotine dependence, cigarettes, uncomplicated; F19.24 Other psychoactive substance dependence with psychoactive substance-induced mood disorder; G47.00 Insomnia, unspecified; Z86.69 Personal history of other diseases of the nervous system and sense organs; Z86.79 Personal history of other diseases of the circulatory system; Z91.5 Personal history of self-harm
CPT/HCPCS: 36415; 80053; 85027; 86593; 93005; 93010

== ENCOUNTER 2019-09-27 14:54 | Inpatient (IN) | payer OTHER ==
[2019-09-27 17:23] VITALS: BMI 22.8
--- NOTE | 2019-09-27 19:40 | HP ---
COWS - Scale Resting Pulse: 0= [place] 80 or Below Sweatin=Flushed/Facial Moisture Restless Observation: 1= Difficult to Sit Still Pupil Size: 2= Moderately Dilated (Pupils = 4 mm) Bone or Joint Aches: 1= Mild Discomfort Runny Nose/ Eye Tearin= Nasal Congestion GI Upset > 30mins: 1= Stomach Cramp Tremor Observation: 4= Gross Tremor/Twitching Yawning Observation: 0= None Anxiety or Irritability: 1=Feels Anxious/Irritable Goose Flesh Skin: 0=Smooth Skin COWS Score: 13 CIWA Score Nausea/Vomitin-No Nausea/No Vomiting Muscle Tremors: 4-Moderate,w/Arms Extend Anxiety: 1-Mildly Anxious Agitation: 1-Slight > Activity Paroxysmal Sweats: 3 (Increased facial moisture) Orientation: 0-Oriented Tacttile Disturbances: 0-None Auditory Disturbances: 0-None Visual Disturbances: 0-None Headache: 0-None Present CIWA-Ar Total Score: 9 - Admission Criteria OASAS Guidelines: Admission for Medically Managed Detox: Requires at least one of the followin. CIWA greater than 12 2. Seizures within the past 24 hours 3. Delirium tremens within the past 24 hours 4. Hallucinations within the past 24 hours 5. Acute intervention needed for co occurring medical disorder 6. Acute intervention needed for co occurring psychiatric disorder 7. Severe withdrawal that cannot be handled at a lower level of care (continued vomiting, continued diarrhea, abnormal vital signs) requiring intravenous medication and/or fluids 8. Patient presents the following: Acute intervention needed for co-occurring med or psych disorder (Co-occurring opiate use disorder w/ hx seizures) Admission Criteria Met: Admission criteria met Admitting History and Physical - Past Medical History ...LMP: 01/21/17 - Smoking History Smoking history: Current every day smoker Have you smoked in the past 12 months: Yes Aproximately how many cigarettes per day: 20 - Alcohol/Substance Use Hx Alcohol Use: No Admission ROS BHS - HPI Chief Complaint: Here to get sober. Allergies/Adverse Reactions: Allergies Allergy/AdvReac Type Severity Reaction Status Date / Time No Known Drug Allergies Allergy Verified 09/27/19 17:20 History of Present Illness: 24 yo presents w/ Xanax and heroin withdrawal seeking detox. Last Care admission 2016. Last detox 2 weeks ago @ [facility]. (Suboxone detox) States prefers methadone detox. States relapsed as soon as left [facility]. KESHA: 0.0 UTox: + THC/DIAMOND/FEN/MOP/BZO HCG: Neg States seizures r/t "adverse drug effects". Blackouts r/t Xanax use. Hx multiple overdoses. States had 3 overdoses this month. [facility] was given Narcan by associates. Heroin use began at age 15. Current use is 2 bundles/day. IVDU. States last use was 09/26/19 @ 2 p.m. States does not share needles or works. Sometimes reuses them. Has a Narcan kit at home. States may be interested in going to a Methadone Program. Xanax use began at age 17. Current use is 4 mg (2 sticks)/day -oral. States last use was 09/26/19 @ 2 p.m. Cocaine use began at age 14. Current use is 1 gm/day. IVDU. States last use was 09/26/19 @ 2 p.m. Marijuana use began at age 14. Current use is not daily. States last use today ( 09/26/19) Denies alcohol use. PMHx: Denies significant MHHx: Depression. Anxiety. Insomnia. Last saw a Psych 2 months ago. Last took MH meds 2 months ago. Denies thoughts of harming self or others. SHx: Domiciled. Unemployed. Denies legal issues. Patient Name: Linda Couch Date: 1995 Address: [address] [place] [address] Sex: Female Rx Written Rx Dispensed Drug Quantity Days Supply Prescriber Name 07/20/2019 07/20/2019 buprenorphine-naloxone 4-1 mg sl film 30 8 Paola Acuña Search Terms: Linda Couch, 1995 Search Date: 09/27/2019 07:38:53 PM States Searched: [place], [place], [place], [place], [place], [place], [place] The Drug Utilization Report below displays the controlled substance prescriptions, if any, that were dispensed in the indicated state(s). The information displayed on this report is compiled from requests submitted to other states' PMPs, and accurately reflects the information as returned by them. Blank mckoy indicate data not provided by other state. This report was requested by: Lashell Soni | Reference #: [id number] There are no results for the search terms that you entered. Exam Limitations: No Limitations - Ebola screening Have you traveled outside of the country in the last 21 days: No (N) Have you had contact with anyone from an Ebola affected area: No Have you been sick,other than usual withdrawal symptoms: No Do you have a fever: No - Review of Systems Constitutional: Chills, Diaphoresis, Changes in sleep (Difficulty falling and staying asleep), Unexplained wgt Loss EENT: reports: Nose Congestion Respiratory: reports: No Symptoms reported Cardiac: reports: No Symptoms Reported GI: reports: Blood Streaked Bowels (Intermittent/very slight - unknown cause), Diarrhea (soft BM x 3 today - brownish yellow), Abdominal cramping : reports: No Symptoms Reported Musculoskeletal: reports: Back Pain (r/t withdrawal), Joint Pain (r/t withdrawal ) Integumentary: reports: No Symptoms Reported Neuro: reports: Numbness (Intermittent r/t injection drug use), Seizure (Last seizure 1 week ago), Tremors Endocrine: reports: No Symptoms Reported Hematology: reports: No Symptoms Reported Psychiatric: reports: Judgement Intact, Mood/Affect Appropiate, Orientated x3, Agitated, Anxious, Depressed ( Denies thoughts of harming self or others.) Patient History - Patient Medical History Hx Anemia: No Hx Asthma: No Hx Chronic Obstructive Pulmonary Disease (COPD): No Hx Cancer: No Hx Cardiac Disorders: No Hx Congestive Heart Failure: No Hx Hypertension: No Hx Hypercholesterolemia: No Hx Pacemaker: No HX Cerebrovascular Accident: No Hx Seizures: Yes Hx Dementia: No Hx Diabetes: No Hx Gastrointestinal Disorders: No Hx Liver Disease: No Hx Genitourinary Disorders: No Hx Sexually Transmitted Disorders: No Hx Renal Disease (ESRD): No Hx Thyroid Disease: No Hx Human Immunodeficiency Virus (HIV): No Hx Hepatitis C: Yes (under the care of pmd) Hx Depression: Yes Hx Suicide Attempt: Yes Hx Bipolar Disorder: No Hx Schizophrenia: No - Patient Surgical History Past Surgical History: No Hx Neurologic Surgery: No Hx Cataract Extraction: No Hx Cardiac Surgery: No Hx Lung Surgery: No Hx Breast Surgery: No Hx Breast Biopsy: No Hx Abdominal Surgery: No Hx Appendectomy: No Hx Cholecystectomy: No Hx Genitourinary Surgery: No Hx Section: No Hx Orthopedic Surgery: No Anesthesia Reaction: No - PPD History Previous Implant?: Yes Documented Results: Negative w/proof Implanted On Prior R Admission?: Yes PPD to be Administered?: Yes - Reproductive History Patient is a Female of Child Bearing Age (11 -55 yrs old): Yes Last Menstrual Period: 09/26/19 Patient : No - Smoking Cessation Smoking history: Current every day smoker Have you smoked in the past 12 months: Yes Aproximately how many cigarettes per day: 20 Cigars Per Day: 0 Hx Chewing Tobacco Use: No Initiated information on smoking cessation: Yes 'Breaking Loose' booklet given: 09/27/19 - Substance & Tx. History Hx Alcohol Use: No Hx Substance Use: Yes Substance Use Type: Cocaine, Heroin, Marijuana, Tranquilizers (X) Hx Substance Use Treatment: Yes (detox, ) - Substances abused Alprazolam (Xanax) Substance route: Oral Frequency: Daily Amount used: 4 STICKS Age of first use: 17 Date of last use: 09/26/19 Heroin Substance route: Injection Frequency: Daily Amount used: 2 BUNDLES Age of first use: 15 Date of last use: 09/26/19 Admission Physical Exam BHS - Vital Signs Vital Signs: Vital Signs - 24 hr 09/27/19 17:21 Temperature 97.1 F L Pulse Rate 86 Respiratory 18 Rate Blood Pressure 127/76 - Physical General Appearance: Yes: Nourished, Mild Distress, Tremorous, Irritable, Sweating (Increased facial moisture), Anxious HEENTM: Yes: EOMI, Hearing grossly Normal, Normocephalic, Normal Voice, ASHISH ( Pupils = 4 mm), Pharynx Normal (Slightly enlarged tonsils w/o redness, lesions, or purulence) Respiratory: Yes: Lungs Clear (Pulse Ox = 98 %), Normal Breath Sounds, No Respiratory Distress Neck: Yes: No masses,lesions,Nodules, Supple Breast: Yes: Breast Exam Deferred Cardiology: Yes: Regular Rhythm, Regular Rate, S1, S2 Abdominal: Yes: Flat, Soft, Increased Bowel Sounds, Tenderness (Superficial @ old belly-ring site w/ increased erythema.) Genitourinary: Yes: Within Normal Limits Back: Yes: Normal Inspection Musculoskeletal: Yes: full range of Motion Extremities: Yes: Normal Capillary Refill (Peripheral pulses +), Tremors Neurological: Yes: play therapist II-XII NML intact, Fully Oriented, Alert, Motor Strength 5/5, Normal Response Integumentary: Yes: Normal Color, Warm, Moist (Increased facial moisture), Track [place] (Old and new track thornton w/o increased warmth or induration), Other (Old cutting thornton on arms) Lymphatic: Yes: Within Normal Limits - Diagnostic (1) History of seizures Current Visit: No Status: Chronic (2) IVDU (intravenous drug user) Current Visit: Yes Status: Chronic (3) Nicotine dependence Current Visit: Yes Status: Chronic Qualifiers: Nicotine product type: cigarettes Substance use status: uncomplicated Qualified Code(s): F17.210 - Nicotine dependence, cigarettes, uncomplicated (4) Cannabis dependence Current Visit: Yes Status: Chronic (5) Opioid dependence with withdrawal Current Visit: Yes Status: Acute (6) Uncomplicated sedative, hypnotic or anxiolytic withdrawal Current Visit: Yes Status: Acute Cleared for Admission S - Detox or Rehab [facility] Level of Care: Medically Managed Detox Regimen/Protocol: Methadone/Valium Claeared for Rehab Admission: No Breathalyzer - Breathalyzer Breathalyzer: 0 Urine Drug Screen - Test Device Lot number: [id number] Expiration date: 05/05/21 - Control Is test valid?: Yes - Results Drug screen NEGATIVE: No Urine drug screen results: THC-Marijuana, DIAMOND-Cocaine, FEN-Fentanyl, MOP-Opiates , BZO-Benzodiazepines Inpatient Rehab Admission - Rehab Decision to Admit Inpatient rehab admission?: No
[2019-09-27] MEDS ORDERED: NICOTINE POLACRILEX 2 MG GUM BUC PRN (20:21)
[2019-09-27] MEDS ORDERED: MAG HYDROX/AL HYDROX/SIMETH 30 ML UNIT-DOSE CUP PO PRN (20:21)
[2019-09-27] MEDS ORDERED: ACETAMINOPHEN 325 MG TABLET (FP) PO PRN ×2 (20:21)
[2019-09-27] MEDS ORDERED: MAGNESIUM HYDROX 2400MG/30ML ORAL SUSPENSION 30 ML CUP PO PRN (20:21)
[2019-09-27] MEDS ORDERED: MAGNESIUM CITRATE 300 ML BOTTLE PO PRN (20:21)
[2019-09-27] MEDS ORDERED: BISMUTH SUBSALICYLATE 524 MG/30 ML UD PO PRN (20:21)
[2019-09-27] MEDS ORDERED: cloNIDine HCL 0.1 MG TABLET PO PRN (20:21)
[2019-09-27] MEDS ORDERED: diazePAM 5 MG TABLET PO ONE (20:21)
[2019-09-27] MEDS ORDERED: IBUPROFEN 400 MG TABLET (FP) PO PRN (20:21)
[2019-09-27] MEDS ORDERED: MENTHOL/PHENOL 1 EACH UD MM PRN (20:21)
[2019-09-27] MEDS ORDERED: MELATONIN 5 MG TABLETS PO PRN (20:21)
[2019-09-27] MEDS ORDERED: diazePAM 5 MG TABLET PO PRN (20:21)
[2019-09-27] MEDS ORDERED: METHADONE (DETOX) 10 MG, METHADONE (DETOX) 5 MG PO ONE ×2 (21:00→23:30)
[2019-09-27] MEDS ORDERED: METHADONE HCL 10 MG TABLET (FOR DETOX USE ONLY) ONE ×2 (21:09→22:49)
[2019-09-27] MEDS ORDERED: METHADONE HCL 5 MG TABLET (FOR DETOX USE ONLY) ONE ×2 (21:09→22:50)
[2019-09-27] MEDS: diazePAM 5 MG TABLET PO SCH (21:26)
[2019-09-27] MEDS: THIAMINE HCL 100 MG TABLET (FP) PO SCH (21:26)
[2019-09-28] MEDS: diazePAM 5 MG TABLET PO SCH ×3 (05:16→22:40)
[2019-09-28] MEDS ORDERED: METHADONE HCL 5 MG TABLET (FOR DETOX USE ONLY) ONE (08:50)
[2019-09-28] MEDS ORDERED: METHADONE HCL 10 MG TABLET (FOR DETOX USE ONLY) ONE (08:50)
[2019-09-28] MEDS ORDERED: METHADONE (DETOX) 20 MG, METHADONE (DETOX) 5 MG PO ONE (10:00)
--- NOTE | 2019-09-28 10:17 | EKG ---
Test Reason : Blood Pressure : / mmHG Vent. Rate : 072 BPM Atrial Rate : 072 BPM P-R Int : 152 ms QRS Dur : 096 ms QT Int : 422 ms P-R-T Axes : 033 082 068 degrees QTc Int : 462 ms NORMAL SINUS RHYTHM NORMAL ECG WHEN COMPARED WITH ECG OF 26-JAN-2017 17:00, VENT. RATE HAS INCREASED BY 25 BPM QT HAS LENGTHENED Confirmed by Wesly Martins MD ([id number]) on 09/28/2019 10:17:01 AM Referred By: Jarred Argueta Confirmed By:Wesly Martins MD
[2019-09-28] MEDS: NICOTINE 21 MG/24 HOURS TOPICAL PATCH TD SCH (10:32)
[2019-09-28] MEDS: PRENATAL VITAMINS W/ FOLIC ACID TABLET (FP) PO SCH (10:32)
[2019-09-28] MEDS: diazePAM 5 MG TABLET PO PRN (10:34)
--- NOTE | 2019-09-28 10:42 | PN ---
[facility] CIWA - CIWA Score Nausea/Vomitin-Mild Nausea/No Vomiting Muscle Tremors: 3 Anxiety: 3 Agitation: 1-Slight > Activity Paroxysmal Sweats: 2 Orientation: 0-Oriented Tacttile Disturbances: 1-Very Mild Itch/Numbness Auditory Disturbances: 0-None Visual Disturbances: 0-None Headache: 0-None Present CIWA-Ar Total Score: 11 S COWS - Scale Resting Pulse: 0= [place] 80 or Below Sweatin= Chills/Flushing Restless Observation: 0= Sits Still Pupil Size: 1= Pupils >than Normal Bone or Joint Aches: 1= Mild Discomfort Runny Nose/ Eye Tearin= None GI Upset > 30mins: 2= Nausea/Diarrhea Tremor Observation of Outstretched Hands: 2= Slight Tremor Visible Yawning Observation: 0= None Anxiety or Irritability: 1=Feels Anxious/Irritable Goose Flesh Skin: 3=Piloerection COWS Score: 11 [facility] Progress Note (SOAP) Subjective: 24 years old female admitted on 09/27/19 for benzo and opiate withdrawal sx management treating with valium and methadone detox regimens ate breakfast feeling tired resting in bed prefers to stay in bed today Objective: 09/28/19 10:44 Vital Signs Temperature 96.6 F L 09/28/19 09:08 Pulse Rate 71 09/28/19 09:08 Respiratory Rate 18 09/28/19 09:08 Blood Pressure 127/62 09/28/19 09:08 O2 Sat by Pulse Oximetry (%) 09/28/19 10:46 09/27/19 admission lab has been discontinued reorder admission lab due to last lab report 2017 Assessment: 09/28/19 10:47 benzo and opiate withdrawal Plan: valium and methadone detox regimens
--- NOTE | 2019-09-28 10:52 | CONSULT ---
[facility] Psychiatric Consult - Data Date of interview: 09/28/19 Admission source: [facility] Identifying data: Readmission to [facility] for this 24 y/o female self -referred for detoxification. BRAYDEN issues : heroin, xanax, cannabis, cocaine, nicotine. Interviewed at [address] [place] [address]. Patient is single, no dependents, now homeless (patient states that her mother has thrown her out of the house), unemployed and deprived of a source of income. Substance Abuse History: Discussed with the patient. Details in current [facility] report as follows : Smoking history: Current every day smoker. Have you smoked in the past 12 months: Yes. Aproximately how many cigarettes per day: 20. Cigars Per Day: 0. Hx Chewing Tobacco Use: No. Initiated information on smoking cessation: Yes. 'Breaking Loose' booklet given: 09/27/19. - Substance & Tx. History. Hx Alcohol Use: No. Hx Substance Use: Yes. Substance Use Type : Cocaine, Heroin, Marijuana, Tranquilizers (X). Hx Substance Use Treatment: Yes (detox, ). - Substances abused. Alprazolam (Xanax). Substance route: Oral. Frequency: Daily. Amount used: 4 STICKS. Age of first use: 17. Date of last use: 09/26/19. Heroin. Substance route: Injection. Frequency: Daily. Amount used: 2 BUNDLES. Age of first use: 15. Date of last use: Medical History: Medical profile is remarkable for hepatitis C, antecedent of syncope and history of withdrawal-related seizures. Psychiatric History: Patient denies history of psychiatric hospitalizations. She indicates prior psychiatric outpatient treatment at the [facility] about 2-3 years ago (records show scripts for suboxone + topiramate + trazodone in 2017). Ms Couch states that she has dropped out of OPD care for the past two years. Off psychotropic medications (except for xanax purchased in the strets). Patient denies history of suicide attempts. Physical/Sexual Abuse/Trauma History: Not discussed in this interview. Patient declines. Additional Comment: Urine drug screen results: THC-Marijuana, DIAMOND-Cocaine, FEN- Fentanyl, MOP-Opiates, BZO-Benzodiazepines. Noted. Mental Status Exam - Mental Status Exam Alert and Oriented to: Time, Place, Person Cognitive Function: Good Patient Appearance: Unkempt, Disheveled Mood: Nervous, Withdrawn Affect: Mood Congruent, Constricted Patient Behavior: Fatigued, Appropriate, Cooperative Speech Pattern: Clear Voice Loudness: Normal Thought Process: Intact, Goal Oriented Thought Disorder: Not Present Hallucinations: Denies Suicidal Ideation: Denies Homicidal Ideation: Denies Insight/Judgement: Poor Sleep: Poorly, Difficulty falling asleep Appetite: Good Gait/Station: Normal Psychiatric Findings - Problem List ([place] 1, 2,3) (1) Opioid dependence with withdrawal Current Visit: Yes Status: Acute (2) Uncomplicated sedative, hypnotic or anxiolytic withdrawal Current Visit: Yes Status: Acute (3) Cannabis dependence Current Visit: Yes Status: Chronic (4) Cocaine dependence Current Visit: Yes Status: Chronic Qualifiers: Substance use status: uncomplicated Qualified Code(s): F14.20 - Cocaine dependence, uncomplicated (5) Nicotine dependence Current Visit: Yes Status: Chronic Qualifiers: Nicotine product type: cigarettes Substance use status: uncomplicated Qualified Code(s): F17.210 - Nicotine dependence, cigarettes, uncomplicated (6) Drug-induced mood disorder Current Visit: Yes Status: Chronic (7) Insomnia Current Visit: Yes Status: Chronic - Initial Treatment Plan Initial Treatment Plan: Psychoeducation. Sleep hygiene. Detoxification. Support. MAT services : discussed with the patient. NA meetings. Ms Couch has specifically requested mirtazapine for insomnia. Remeron 7.5 mg po hs. Ordered. Side effects/benefits discussed. Patient gave consent (verbal) to MD. Wilson.
[2019-09-28] MEDS: BACITRACIN 15 GM TUBE TOPICAL OINTMENT TP SCH ×2 (12:38→22:42)
[2019-09-28] MEDS: MIRTAZAPINE 15 MG TABLET (FP) PO SCH (22:40)
[2019-09-28] MEDS: THIAMINE HCL 100 MG TABLET (FP) PO SCH (22:40)
[2019-09-29] MEDS: diazePAM 5 MG TABLET PO SCH ×2 (06:10→18:20)
[2019-09-29] MEDS ORDERED: METHADONE HCL 10 MG TABLET (FOR DETOX USE ONLY) PO ONE (10:00)
[2019-09-29] MEDS: PRENATAL VITAMINS W/ FOLIC ACID TABLET (FP) PO SCH (10:13)
[2019-09-29] MEDS: NICOTINE 21 MG/24 HOURS TOPICAL PATCH TD SCH (10:13)
[2019-09-29] MEDS: BACITRACIN 15 GM TUBE TOPICAL OINTMENT TP SCH (10:14)
[2019-09-29] MEDS: diazePAM 5 MG TABLET PO PRN (10:16)
--- NOTE | 2019-09-29 11:39 | PN ---
[facility] CIWA - CIWA Score Nausea/Vomitin-Mild Nausea/No Vomiting Muscle Tremors: 2 Anxiety: 2 Agitation: 2 Paroxysmal Sweats: 1-Minimal Palms Moist Orientation: 0-Oriented Tacttile Disturbances: 0-None Auditory Disturbances: 0-None Visual Disturbances: 0-None Headache: 0-None Present CIWA-Ar Total Score: 8 [facility] COWS - Scale Resting Pulse: 0= [place] 80 or Below Sweatin= Chills/Flushing Restless Observation: 0= Sits Still Pupil Size: 1= Pupils >than Normal Bone or Joint Aches: 1= Mild Discomfort Runny Nose/ Eye Tearin= Nasal Congestion GI Upset > 30mins: 1= Stomach Cramp Tremor Observation of Outstretched Hands: 1= Tremor [place], Not Seen Yawning Observation: 1= 1-2x During Session Anxiety or Irritability: 1=Feels Anxious/Irritable Goose Flesh Skin: 0=Smooth Skin COWS Score: 8 [facility] Progress Note (SOAP) Subjective: 24 years old female admitted on 09/27/19 for benzo and opiate withdrawal sx management treating with valium and methadone detox regimens refuses admission blood work today health teaching on the benefits of lab result related to pharmacotherapy in detox Objective: 09/29/19 11:38 benzo and opiate withdrawal Assessment: 09/29/19 11:38 valium and methadone regimens Plan: encourage to express concerns regarding admission lab work
[2019-09-29] MEDS: MIRTAZAPINE 15 MG TABLET (FP) PO SCH (22:35)
[2019-09-29] MEDS: THIAMINE HCL 100 MG TABLET (FP) PO SCH (22:35)
[2019-09-30] MEDS: BACITRACIN 15 GM TUBE TOPICAL OINTMENT TP SCH ×2 (00:24→10:57)
[2019-09-30] MEDS ORDERED: diazePAM 5 MG TABLET PO ONE (06:00)
--- NOTE | 2019-09-30 09:05 | PN ---
[facility] CIWA - CIWA Score Nausea/Vomitin-No Nausea/No Vomiting Muscle Tremors: 2 Anxiety: 2 Agitation: 2 Paroxysmal Sweats: 1-Minimal Palms Moist Orientation: 0-Oriented Tacttile Disturbances: 0-None Auditory Disturbances: 0-None Visual Disturbances: 0-None Headache: 0-None Present CIWA-Ar Total Score: 7 [facility] COWS - Scale Resting Pulse: 0= [place] 80 or Below Sweatin= Chills/Flushing Restless Observation: 0= Sits Still Pupil Size: 1= Pupils >than Normal Bone or Joint Aches: 1= Mild Discomfort Runny Nose/ Eye Tearin= Nasal Congestion GI Upset > 30mins: 1= Stomach Cramp Tremor Observation of Outstretched Hands: 1= Tremor [place], Not Seen Yawning Observation: 0= None Anxiety or Irritability: 1=Feels Anxious/Irritable Goose Flesh Skin: 0=Smooth Skin COWS Score: 7 [facility] Progress Note (SOAP) Subjective: 24 years old female admitted on 09/27/19 for benzo and opiate withdrawal sx management treating with valium and methadone detox regimens patient refused admission lab yesterday discuss the purpose of blood tests ate breakfast feeling tired prefers to resting in bed encourage medication assisted treatment program and [facility] narcan from pharmacy Objective: 09/30/19 09:09 Vital Signs Temperature 97.4 F L 09/30/19 06:22 Pulse Rate 60 09/30/19 06:22 Respiratory Rate 18 09/30/19 06:30 Blood Pressure 106/64 09/30/19 06:22 O2 Sat by Pulse Oximetry (%) patient refused lab testing reorder admission lab lab pending Assessment: 09/30/19 09:09 benzo and opiate withdrawal Plan: valium and methadone regimens
[2019-09-30] MEDS ORDERED: METHADONE HCL 10 MG TABLET (FOR DETOX USE ONLY) ONE (09:40)
[2019-09-30] MEDS ORDERED: METHADONE HCL 5 MG TABLET (FOR DETOX USE ONLY) ONE (09:40)
[2019-09-30] MEDS ORDERED: METHADONE (DETOX) 10 MG, METHADONE (DETOX) 5 MG PO ONE (10:00)
[2019-09-30] MEDS: NICOTINE 21 MG/24 HOURS TOPICAL PATCH TD SCH (10:58)
[2019-09-30] MEDS: PRENATAL VITAMINS W/ FOLIC ACID TABLET (FP) PO SCH (10:58)
[2019-09-30] MEDS: diazePAM 5 MG TABLET PO PRN (11:00)
[2019-09-30 13:14] VITALS: BP 116/76; PULSE 99; TEMP 97.6
--- NOTE | 2019-09-30 15:12 | DS ---
[facility] Detox Discharge Summary Admission Date: 09/27/19 Discharge Date: 09/30/19 - History Present History: Opioid Dependence, Sedative Dependence Additional Comments: 24 years old female admitted on 09/27/19 for benzo and opiate withdrawal sx management treated with valium and methadone detox regimens patient insists to leave the detox unit that she prefers returning to "[facility]" patient dose not wish to attend medication assisted treatment program rather seeking community support approach patient is alert oriented x 3 ambulating steady gait speech clearly coherently Pertinent Past History: 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 - Physical Exam Results Vital Signs: Vital Signs Temperature 97.6 F 09/30/19 13:13 Pulse Rate 99 H 09/30/19 13:13 Respiratory Rate 09/30/19 13:13 Blood Pressure 116/76 09/30/19 13:13 O2 Sat by Pulse Oximetry (%) Pertinent Admission Physical Exam Findings: benzo and opiate withdrawal patient refuses admission blood work - Treatment Hospital Course: Detox Protocol Followed, Discharged Condition Good Patient has Accepted a Rehab Referral to: community support approach - Medication Discharge Medications: Ambulatory Orders Naloxone HCl [Narcan] 4 mg NS ASDIR PRN #1 spray 09/28/19 - Diagnosis (1) Opioid dependence with withdrawal Current Visit: Yes Status: Acute (2) Uncomplicated sedative, hypnotic or anxiolytic withdrawal Current Visit: Yes Status: Acute (3) Hepatitis C Current Visit: Yes Status: Chronic Qualifiers: Viral hepatitis chronicity: chronic Hepatic coma status: without hepatic coma Qualified Code(s): B18.2 - Chronic viral hepatitis C (4) Nicotine dependence Current Visit: Yes Status: Acute Qualifiers: Nicotine product type: cigarettes Substance use status: in withdrawal Qualified Code(s): F17.213 - Nicotine dependence, cigarettes, with withdrawal - AMA Did Patient Leave Against Medical Advice: Yes
[2019-10-01] MEDS ORDERED: METHADONE HCL 10 MG TABLET (FOR DETOX USE ONLY) PO ONE (10:00)
[2019-10-02] MEDS ORDERED: METHADONE HCL 5 MG TABLET (FOR DETOX USE ONLY) PO ONE (06:00)
== END 2019-09-30 03:30 | disposition left against medical advice (07) | DRG 770 ==
LOC: YASAS 14:54 → Y3N 20:39
PROVIDERS: ADMIT Allergy & Immunology; ATTEND Allergy & Immunology
PROC: HZ2ZZZZ Detoxification Services for Substance Abuse Treatment (ICD-10-PCS; principal; 2019-09-27)
DX: F11.23 Opioid dependence with withdrawal (principal); F13.230 Sedative, hypnotic or anxiolytic dependence with withdrawal, uncomplicated; F14.20 Cocaine dependence, uncomplicated; F12.20 Cannabis dependence, uncomplicated; F17.210 Nicotine dependence, cigarettes, uncomplicated; F19.24 Other psychoactive substance dependence with psychoactive substance-induced mood disorder; F32.9 Major depressive disorder, single episode, unspecified; G47.00 Insomnia, unspecified; B18.2 Chronic viral hepatitis C; Z86.69 Personal history of other diseases of the nervous system and sense organs
CPT/HCPCS: 81025; 93005; 93010

== ENCOUNTER 2019-10-31 13:17 | Inpatient (IN) | payer OTHER ==
[2019-10-31 14:43] VITALS: BMI 21.7
--- NOTE | 2019-10-31 16:32 | HP ---
COWS - Scale Resting Pulse: 0= [place] 80 or Below Sweatin=Flushed/Facial Moisture Restless Observation: 1= Difficult to Sit Still Pupil Size: 1= Pupils >than Normal Bone or Joint Aches: 2= Severe Diffuse Aches Runny Nose/ Eye Tearin= Runny Nose/Eyes GI Upset > 30mins: 2= Nausea/Diarrhea Tremor Observation: 2= Slight Tremor Visible Yawning Observation: 1= 1-2x During Session Anxiety or Irritability: 2=Irritable/Anxious Goose Flesh Skin: 3=Piloerection COWS Score: 18 CIWA Score Nausea/Vomitin Muscle Tremors: 2 Anxiety: 2 Agitation: 2 Paroxysmal Sweats: 2 Orientation: 0-Oriented Tacttile Disturbances: 2-Mild Itch/Numbness/Burn Auditory Disturbances: 1-Very Mild Visual Disturbances: 1-Very Mild Sensitivity Headache: 2-Mild CIWA-Ar Total Score: 16 - Admission Criteria OASAS Guidelines: Admission for Medically Managed Detox: Requires at least one of the followin. CIWA greater than 12 2. Seizures within the past 24 hours 3. Delirium tremens within the past 24 hours 4. Hallucinations within the past 24 hours 5. Acute intervention needed for co occurring medical disorder 6. Acute intervention needed for co occurring psychiatric disorder 7. Severe withdrawal that cannot be handled at a lower level of care (continued vomiting, continued diarrhea, abnormal vital signs) requiring intravenous medication and/or fluids 8. Patient presents the following: CIWA greater than 12 Admission Criteria Met: Admission criteria met Admitting History and Physical - Past Medical History ...LMP: 09/26/19 - Smoking History Smoking history: Current every day smoker Have you smoked in the past 12 months: Yes Aproximately how many cigarettes per day: 20 - Alcohol/Substance Use Hx Alcohol Use: No Admission ROS [facility] - [facility] Chief Complaint: Withdrawal sx Allergies/Adverse Reactions: Allergies Allergy/AdvReac Type Severity Reaction Status Date / Time No Known Drug Allergies Allergy Verified 10/31/19 14:28 History of Present Illness: 24 year old female with heroin and xanax use presents for detox. Her last treatment was from 09/27/19 to 09/30/19 with subsequent AMA discharge. She reports blackouts from xanax and seizures from adverse drug effects. Exam Limitations: No Limitations - Ebola screening Have you traveled outside of the country in the last 21 days: No (NN) Have you had contact with anyone from an Ebola affected area: No Have you been sick,other than usual withdrawal symptoms: No Do you have a fever: No - Review of Systems Constitutional: Chills, Changes in sleep EENT: reports: Blurred Vision Respiratory: reports: Cough, SOB with Exertion Cardiac: reports: Lightheadedness GI: reports: Nausea, Abdominal cramping : reports: No Symptoms Reported Musculoskeletal: reports: Back Pain, Muscle Pain Integumentary: reports: Lesions, Sweating Neuro: reports: Headache, Seizure, Tremors Endocrine: reports: No Symptoms Reported Hematology: reports: No Symptoms Reported Psychiatric: reports: Anxious, Depressed Other Systems: Reviewed and Negative Patient History - Patient Medical History Hx Anemia: No Hx Asthma: No Hx Chronic Obstructive Pulmonary Disease (COPD): No Hx Cancer: No Hx Cardiac Disorders: No Hx Congestive Heart Failure: No Hx Hypertension: No Hx Hypercholesterolemia: No Hx Pacemaker: No HX Cerebrovascular Accident: No Hx Seizures: Yes Hx Dementia: No Hx Diabetes: No Hx Gastrointestinal Disorders: No Hx Liver Disease: No Hx Genitourinary Disorders: No Hx Sexually Transmitted Disorders: No Hx Renal Disease (ESRD): No Hx Thyroid Disease: No Hx Human Immunodeficiency Virus (HIV): No Hx Hepatitis C: Yes Hx Depression: Yes Hx Suicide Attempt: Yes Hx Bipolar Disorder: No Hx Schizophrenia: No - Patient Surgical History Past Surgical History: No - PPD History Previous Implant?: Yes Documented Results: Negative w/proof Implanted On Prior R Admission?: Yes Date: 09/29/19 PPD to be Administered?: No - Reproductive History Patient is a Female of Child Bearing Age (11 -55 yrs old): Yes Last Menstrual Period: 09/26/19 Patient : No - Smoking Cessation Smoking history: Current every day smoker Have you smoked in the past 12 months: Yes Aproximately how many cigarettes per day: 20 Cigars Per Day: 0 Hx Chewing Tobacco Use: No Initiated information on smoking cessation: Yes 'Breaking Loose' booklet given: 10/31/19 - Substances abused Heroin Substance route: Injection Frequency: Daily Amount used: 15-20bags/day Age of first use: 16 Date of last use: 10/31/19 Alprazolam (Xanax) Substance route: Oral Frequency: 3-6 times per week Amount used: 2mg Age of first use: 16 Date of last use: 10/31/19 Admission Physical Exam [facility] - Vital Signs Vital Signs: Vital Signs - 24 hr 10/31/19 14:38 Temperature 97.5 F L Pulse Rate 70 Respiratory 16 Rate Blood Pressure 125/72 - Physical General Appearance: Yes: Mild Distress HEENTM: Yes: Hearing grossly Normal, Normocephalic Respiratory: Yes: Chest Non-Tender, Lungs Clear Neck: Yes: No masses,lesions,Nodules, Supple Breast: Yes: Breast Exam Deferred Cardiology: Yes: Regular Rhythm, Regular Rate Abdominal: Yes: Normal Bowel Sounds, Non Tender Genitourinary: Yes: Within Normal Limits Back: Yes: Normal Inspection Musculoskeletal: Yes: Gait Steady, Muscle Pain Extremities: Yes: Tremors, Coldness Integumentary: Yes: Clammy, Track Thornton, Other (lesions) Lymphatic: Yes: Within Normal Limits - Diagnostic (1) Nicotine dependence Current Visit: Yes Status: Acute Qualifiers: Nicotine product type: cigarettes Substance use status: in withdrawal Qualified Code(s): F17.213 - Nicotine dependence, cigarettes, with withdrawal (2) Opioid dependence with withdrawal Current Visit: Yes Status: Acute (3) Uncomplicated sedative, hypnotic or anxiolytic withdrawal Current Visit: Yes Status: Acute (4) Cannabis dependence Current Visit: Yes Status: Chronic (5) Hepatitis C Current Visit: No Status: Chronic Qualifiers: Viral hepatitis chronicity: chronic Hepatic coma status: without hepatic coma Qualified Code(s): B18.2 - Chronic viral hepatitis C (6) History of seizures Current Visit: Yes Status: Chronic (7) IVDU (intravenous drug user) Current Visit: Yes Status: Chronic (8) Anxiety Current Visit: Yes Status: Chronic Cleared for Admission [facility] - Detox or Rehab [facility] Level of Care: Medically Managed Detox Regimen/Protocol: Methadone/Valium Claeared for Rehab Admission: No Breathalyzer - Breathalyzer Breathalyzer: 0 Urine Drug Screen - Test Device Lot number: [id number] Expiration date: 05/05/21 - Control Is test valid?: Yes - Results Drug screen NEGATIVE: No Urine drug screen results: DIAMOND-Cocaine, MET-Methamphetamine, AMP-Amphetamines, FEN-Fentanyl, MOP-Opiates Inpatient Rehab Admission - Rehab Decision to Admit Inpatient rehab admission?: No
[2019-10-31] MEDS ORDERED: METHADONE HCL 10 MG TABLET (FOR DETOX USE ONLY) PO ONE (16:37)
[2019-10-31] MEDS ORDERED: NICOTINE POLACRILEX 2 MG GUM BUC PRN (16:37)
[2019-10-31] MEDS ORDERED: MENTHOL/PHENOL 1 EACH UD MM PRN (16:37)
[2019-10-31] MEDS ORDERED: BISMUTH SUBSALICYLATE 524 MG/30 ML UD PO PRN (16:37)
[2019-10-31] MEDS ORDERED: ACETAMINOPHEN 325 MG TABLET (FP) PO PRN ×2 (16:37)
[2019-10-31] MEDS ORDERED: MAGNESIUM HYDROX 2400MG/30ML ORAL SUSPENSION 30 ML CUP PO PRN (16:37)
[2019-10-31] MEDS ORDERED: diazePAM 5 MG TABLET PO ONE (16:37)
[2019-10-31] MEDS ORDERED: IBUPROFEN 400 MG TABLET (FP) PO PRN (16:37)
[2019-10-31] MEDS ORDERED: MELATONIN 5 MG TABLETS PO PRN (16:37)
[2019-10-31] MEDS ORDERED: MAG HYDROX/AL HYDROX/SIMETH 30 ML UNIT-DOSE CUP PO PRN (16:37)
[2019-10-31] MEDS ORDERED: MAGNESIUM CITRATE 300 ML BOTTLE PO PRN (16:37)
[2019-10-31] MEDS: NICOTINE 14 MG/24 HOURS TOPICAL PATCH TD SCH (17:48)
[2019-10-31] MEDS: cloNIDine HCL 0.1 MG TABLET PO PRN ×2 (17:49→22:34)
[2019-10-31] MEDS: THIAMINE HCL 100 MG TABLET (FP) PO SCH (22:34)
[2019-10-31] MEDS: diazePAM 5 MG TABLET PO SCH (22:34)
[2019-10-31] MEDS: METHOCARBAMOL 500 MG TABLET PO PRN (22:35)
[2019-11-01] MEDS: diazePAM 5 MG TABLET PO SCH ×3 (06:27→22:22)
[2019-11-01 09:38] LABS: HEMATOCRIT 28.8 % (32.4-45.2); HEMOGLOBIN 9.4 GM/dL (10.7-15.3); MCHC 32.6 g/dl (32.0-36.0); MEAN CELL VOLUME 70.6 fl (80-96); MEAN PLT VOLUME 9.4 fl (7.5-11.1); PLATELET COUNT 222 K/MM3 (134-434); RBC 4.08 M/mm3 (3.60-5.2); WHITE BLOOD COUNT 6.9 K/mm3 (4.0-10.0)
[2019-11-01] MEDS ORDERED: METHADONE HCL 5 MG TABLET (FOR DETOX USE ONLY) PO ONE (10:00)
[2019-11-01 10:11] LABS: ALBUMIN 2.8 g/dl (3.4-5.0); BILIRUBIN,TOTAL 0.3 mg/dL (0.2-1); BLOOD UREA NITROGEN 16.8 mg/dL (7-18); CREATININE 0.8 mg/dL (0.55-1.3); POTASSIUM 4.2 mmol/L (3.5-5.1); TOT PROT 6.5 g/dl (6.4-8.2)
[2019-11-01] MEDS: PRENATAL VITAMINS W/ FOLIC ACID TABLET (FP) PO SCH (10:20)
[2019-11-01] MEDS: NICOTINE 14 MG/24 HOURS TOPICAL PATCH TD SCH (10:21)
--- NOTE | 2019-11-01 12:44 | CONSULT ---
[facility] Psychiatric Consult - Data Date of interview: 11/01/19 Admission source: [facility] Identifying data: Patient is approached at bedside for psychiatric interview. Ms Couch is found to be uncooperative. She declines to talk to insurance underwriter. Nursing staff is made aware.
--- NOTE | 2019-11-01 13:39 | PN ---
S CIWA - CIWA Score Nausea/Vomitin-Mild Nausea/No Vomiting Muscle Tremors: 2 Anxiety: 4-Mod. Anxious/Guarded Agitation: 1-Slight > Activity Paroxysmal Sweats: 2 Orientation: 0-Oriented Tacttile Disturbances: 0-None Auditory Disturbances: 0-None Visual Disturbances: 1-Very Mild Sensitivity Headache: 2-Mild CIWA-Ar Total Score: 13 BHS COWS - Scale Resting Pulse: 0= [place] 80 or Below Sweatin= Chills/Flushing Restless Observation: 0= Sits Still Pupil Size: 1= Pupils >than Normal Bone or Joint Aches: 1= Mild Discomfort Runny Nose/ Eye Tearin= None GI Upset > 30mins: 2= Nausea/Diarrhea Tremor Observation of Outstretched Hands: 2= Slight Tremor Visible Yawning Observation: 0= None Anxiety or Irritability: 1=Feels Anxious/Irritable Goose Flesh Skin: 3=Piloerection COWS Score: 11 S Progress Note (SOAP) Subjective: 24 years old female admitted on 10/31/19 for benzo and opiate withdrawal sx management reating with valium and methadone detox regiments feeling ok today but tired resting in bed prefers to stay in bed today Objective: 11/01/19 13:40 Vital Signs Temperature 98.9 F 11/01/19 13:15 Pulse Rate 61 11/01/19 13:15 Respiratory Rate 18 11/01/19 13:15 Blood Pressure 108/65 11/01/19 13:15 O2 Sat by Pulse Oximetry (%) Laboratory Last Values WBC 6.9 K/mm3 (4.0-10.0) 11/01/19 08:00 RBC 4.08 M/mm3 (3.60-5.2) 11/01/19 08:00 Hgb 9.4 GM/dL (10.7-15.3) L 11/01/19 08:00 Hct 28.8 % (32.4-45.2) L D 11/01/19 08:00 MCV 70.6 fl (80-96) L 11/01/19 08:00 MCH 23.0 pg (25.7-33.7) L 11/01/19 08:00 MCHC 32.6 g/dl (32.0-36.0) 11/01/19 08:00 RDW 16.0 % (11.6-15.6) H 11/01/19 08:00 Plt Count 222 K/MM3 (134-434) D 11/01/19 08:00 MPV 9.4 fl (7.5-11.1) 11/01/19 08:00 Sodium 137 mmol/L (136-145) 11/01/19 08:00 Potassium 4.2 mmol/L (3.5-5.1) 11/01/19 08:00 Chloride 106 mmol/L (98-107) 11/01/19 08:00 Carbon Dioxide 25 mmol/L (21-32) 11/01/19 08:00 Anion Gap 5 MMOL/L (8-16) L 11/01/19 08:00 BUN 16.8 mg/dL (7-18) 11/01/19 08:00 Creatinine 0.8 mg/dL (0.55-1.3) 11/01/19 08:00 Est GFR (CKD-EPI)AfAm 120.44 11/01/19 08:00 Est GFR (CKD-EPI)NonAf 103.92 11/01/19 08:00 Random Glucose 110 mg/dL (74-106) H 11/01/19 08:00 Calcium 8.0 mg/dL (8.5-10.1) L 11/01/19 08:00 Total Bilirubin 0.3 mg/dL (0.2-1) 11/01/19 08:00 AST 28 U/L (15-37) 11/01/19 08:00 ALT 28 U/L (13-61) 11/01/19 08:00 Alkaline Phosphatase 115 U/L (45-117) 11/01/19 08:00 Total Protein 6.5 g/dl (6.4-8.2) 11/01/19 08:00 Albumin 2.8 g/dl (3.4-5.0) L 11/01/19 08:00 RPR Titer Nonreactive (NONREACTIVE) 11/01/19 08:00 lab noted anemia Assessment: 11/01/19 13:41 benzo and opiate withdrawal Plan: valium and methadone regiments
[2019-11-01] MEDS: FERROUS SO4 325 MG TABLET (FP) PO SCH (17:58)
[2019-11-01] MEDS: diazePAM 5 MG TABLET PO PRN (18:00)
[2019-11-01] MEDS: THIAMINE HCL 100 MG TABLET (FP) PO SCH (22:22)
[2019-11-02] MEDS: diazePAM 5 MG TABLET PO SCH ×2 (05:42→17:13)
[2019-11-02] MEDS ORDERED: METHADONE HCL 10 MG TABLET (FOR DETOX USE ONLY) PO ONE (10:00)
[2019-11-02] MEDS: NICOTINE 14 MG/24 HOURS TOPICAL PATCH TD SCH (10:29)
[2019-11-02] MEDS: PRENATAL VITAMINS W/ FOLIC ACID TABLET (FP) PO SCH (10:31)
[2019-11-02] MEDS: METHOCARBAMOL 500 MG TABLET PO PRN (10:31)
[2019-11-02] MEDS: FERROUS SO4 325 MG TABLET (FP) PO SCH (10:31)
[2019-11-02] MEDS: diazePAM 5 MG TABLET PO PRN (10:31)
--- NOTE | 2019-11-02 11:50 | PN ---
S CIWA - CIWA Score Nausea/Vomitin-No Nausea/No Vomiting Muscle Tremors: 3 Anxiety: 2 Agitation: 1-Slight > Activity Paroxysmal Sweats: 2 Orientation: 0-Oriented Tacttile Disturbances: 0-None Auditory Disturbances: 0-None Visual Disturbances: 0-None Headache: 0-None Present CIWA-Ar Total Score: 8 BHS COWS - Scale Resting Pulse: 0= [place] 80 or Below Sweatin= Chills/Flushing Restless Observation: 0= Sits Still Pupil Size: 0= Normal to Room Light Bone or Joint Aches: 1= Mild Discomfort Runny Nose/ Eye Tearin= Runny Nose/Eyes GI Upset > 30mins: 1= Stomach Cramp Tremor Observation of Outstretched Hands: 2= Slight Tremor Visible Yawning Observation: 0= None Anxiety or Irritability: 1=Feels Anxious/Irritable Goose Flesh Skin: 0=Smooth Skin COWS Score: 8 BHS Progress Note (SOAP) Subjective: 24 years old female admitted on 10/31/19 for benzo and opiate withdrawal sx management treating with Valium and methadone detox regiments feeling better today ate breakfast in room c/o running nose nasal spray Objective: 11/02/19 11:49 Vital Signs Temperature 96.4 F L 11/02/19 09:05 Pulse Rate 73 11/02/19 09:05 Respiratory Rate 18 11/02/19 09:05 Blood Pressure 123/73 11/02/19 09:05 O2 Sat by Pulse Oximetry (%) Laboratory Last Values WBC 6.9 K/mm3 (4.0-10.0) 11/01/19 08:00 RBC 4.08 M/mm3 (3.60-5.2) 11/01/19 08:00 Hgb 9.4 GM/dL (10.7-15.3) L 11/01/19 08:00 Hct 28.8 % (32.4-45.2) L D 11/01/19 08:00 MCV 70.6 fl (80-96) L 11/01/19 08:00 MCH 23.0 pg (25.7-33.7) L 11/01/19 08:00 MCHC 32.6 g/dl (32.0-36.0) 11/01/19 08:00 RDW 16.0 % (11.6-15.6) H 11/01/19 08:00 Plt Count 222 K/MM3 (134-434) D 11/01/19 08:00 MPV 9.4 fl (7.5-11.1) 11/01/19 08:00 Sodium 137 mmol/L (136-145) 11/01/19 08:00 Potassium 4.2 mmol/L (3.5-5.1) 11/01/19 08:00 Chloride 106 mmol/L (98-107) 11/01/19 08:00 Carbon Dioxide 25 mmol/L (21-32) 11/01/19 08:00 Anion Gap 5 MMOL/L (8-16) L 11/01/19 08:00 BUN 16.8 mg/dL (7-18) 11/01/19 08:00 Creatinine 0.8 mg/dL (0.55-1.3) 11/01/19 08:00 Est GFR (CKD-EPI)AfAm 120.44 11/01/19 08:00 Est GFR (CKD-EPI)NonAf 103.92 11/01/19 08:00 Random Glucose 110 mg/dL (74-106) H 11/01/19 08:00 Calcium 8.0 mg/dL (8.5-10.1) L 11/01/19 08:00 Total Bilirubin 0.3 mg/dL (0.2-1) 11/01/19 08:00 AST 28 U/L (15-37) 11/01/19 08:00 ALT 28 U/L (13-61) 11/01/19 08:00 Alkaline Phosphatase 115 U/L (45-117) 11/01/19 08:00 Total Protein 6.5 g/dl (6.4-8.2) 11/01/19 08:00 Albumin 2.8 g/dl (3.4-5.0) L 11/01/19 08:00 RPR Titer Nonreactive (NONREACTIVE) 11/01/19 08:00 lab noted Assessment: 11/02/19 11:49 benzo and opiate withdrawal Plan: valium and methadone regiments
[2019-11-02] MEDS: SODIUM CHLORIDE NASAL SPRAY 44 ML BOTTLE NS SCH ×2 (15:06→23:00)
[2019-11-02] MEDS: THIAMINE HCL 100 MG TABLET (FP) PO SCH (23:00)
[2019-11-03] MEDS ORDERED: diazePAM 5 MG TABLET PO ONE (06:00)
[2019-11-03] MEDS ORDERED: METHADONE HCL 5 MG TABLET (FOR DETOX USE ONLY) PO ONE (06:00)
[2019-11-03] MEDS: SODIUM CHLORIDE NASAL SPRAY 44 ML BOTTLE NS SCH (06:24)
[2019-11-03] MEDS: FERROUS SO4 325 MG TABLET (FP) PO SCH (07:29)
[2019-11-03 09:19] VITALS: BP 122/64; PULSE 107; TEMP 98.4
[2019-11-03] MEDS: PRENATAL VITAMINS W/ FOLIC ACID TABLET (FP) PO SCH (10:32)
[2019-11-03] MEDS: NICOTINE 14 MG/24 HOURS TOPICAL PATCH TD SCH (10:32)
--- NOTE | 2019-11-03 12:11 | DS ---
[facility] Detox Discharge Summary Admission Date: 10/31/19 Discharge Date: 11/03/19 - History Present History: Opioid Dependence, Sedative Dependence Additional Comments: 24 years old female admitted on 10/31/19 for benzo and opiate withdrawal sx management treated with valium and methadone detox regiments patient has completed the valium and methadone regiment and tolerated well alert oriented x 3 cardiac s1s2 regular rate rhythm respiratory clear lungs bilaterally on auscultation skin warm and dry Pertinent Past History: patient refuses the psychiatric evaluation denies depressive mood no suicidal homocidal ideations - Physical Exam Results Vital Signs: Vital Signs Temperature 98.4 F 11/03/19 08:47 Pulse Rate 107 H 11/03/19 08:47 Respiratory Rate 18 11/03/19 08:47 Blood Pressure 122/64 11/03/19 08:47 O2 Sat by Pulse Oximetry (%) Pertinent Admission Physical Exam Findings: benzo and opiate withdrawal Laboratory Last Values WBC 6.9 K/mm3 (4.0-10.0) 11/01/19 08:00 RBC 4.08 M/mm3 (3.60-5.2) 11/01/19 08:00 Hgb 9.4 GM/dL (10.7-15.3) L 11/01/19 08:00 Hct 28.8 % (32.4-45.2) L D 11/01/19 08:00 MCV 70.6 fl (80-96) L 11/01/19 08:00 MCH 23.0 pg (25.7-33.7) L 11/01/19 08:00 MCHC 32.6 g/dl (32.0-36.0) 11/01/19 08:00 RDW 16.0 % (11.6-15.6) H 11/01/19 08:00 Plt Count 222 K/MM3 (134-434) D 11/01/19 08:00 MPV 9.4 fl (7.5-11.1) 11/01/19 08:00 Sodium 137 mmol/L (136-145) 11/01/19 08:00 Potassium 4.2 mmol/L (3.5-5.1) 11/01/19 08:00 Chloride 106 mmol/L (98-107) 11/01/19 08:00 Carbon Dioxide 25 mmol/L (21-32) 11/01/19 08:00 Anion Gap 5 MMOL/L (8-16) L 11/01/19 08:00 BUN 16.8 mg/dL (7-18) 11/01/19 08:00 Creatinine 0.8 mg/dL (0.55-1.3) 11/01/19 08:00 Est GFR (CKD-EPI)AfAm 120.44 11/01/19 08:00 Est GFR (CKD-EPI)NonAf 103.92 11/01/19 08:00 Random Glucose 110 mg/dL (74-106) H 11/01/19 08:00 Calcium 8.0 mg/dL (8.5-10.1) L 11/01/19 08:00 Total Bilirubin 0.3 mg/dL (0.2-1) 11/01/19 08:00 AST 28 U/L (15-37) 11/01/19 08:00 ALT 28 U/L (13-61) 11/01/19 08:00 Alkaline Phosphatase 115 U/L (45-117) 11/01/19 08:00 Total Protein 6.5 g/dl (6.4-8.2) 11/01/19 08:00 Albumin 2.8 g/dl (3.4-5.0) L 11/01/19 08:00 RPR Titer Nonreactive (NONREACTIVE) 11/01/19 08:00 lab noted - Treatment Hospital Course: Detox Protocol Followed, Detoxed Safely, Responded well, Discharged Condition Good, Rehab Referral Accepted Patient [facility] - Medication Discharge Medications: Ambulatory Orders Naloxone HCl [Narcan] 4 mg NS ASDIR PRN #1 spray 11/02/19 - Diagnosis (1) Nicotine dependence Status: Acute Qualifiers: Nicotine product type: cigarettes Substance use status: in withdrawal Qualified Code(s): F17.213 - Nicotine dependence, cigarettes, with withdrawal (2) Opioid dependence with withdrawal Status: Acute (3) Uncomplicated sedative, hypnotic or anxiolytic withdrawal Status: Acute (4) Hepatitis C Status: Chronic Qualifiers: Viral hepatitis chronicity: chronic Hepatic coma status: without hepatic coma Qualified Code(s): B18.2 - Chronic viral hepatitis C - AMA Did Patient Leave Against Medical Advice: No CIWA Score - CIWA Score Nausea/Vomitin-No Nausea/No Vomiting Muscle Tremors: 2 Anxiety: 1-Mildly Anxious Agitation: 0-Normal Activity Paroxysmal Sweats: 1-Minimal Palms Moist Orientation: 0-Oriented Tacttile Disturbances: 0-None Auditory Disturbances: 0-None Visual Disturbances: 0-None Headache: 0-None Present CIWA-Ar Total Score: 4 COWS (PN) - Opiate Withdrawal Resting Pulse: 2= [place] 101-120 Sweatin= No chills or Flushing Restless Observation: 0= Sits Still Pupil Size: 0= Normal to Room Light Bone or Joint Aches: 0= None Runny Nose/ Eye Tearin= None GI Upset > 30mins: 0= None Tremor Observation of Outstretched Hands: 1= Tremor Coggon, Not Seen Yawning Observation: 0= None Anxiety or Irritability: 1=Feels Anxious/Irritable Goose Flesh Skin: 0=Smooth Skin COWS Score: 4
== END 2019-11-03 11:30 | disposition home or self-care (01) | DRG 773 ==
LOC: YASAS 13:17 → Y3N 16:57
PROVIDERS: ADMIT Allergy & Immunology; ATTEND Allergy & Immunology
PROC: HZ2ZZZZ Detoxification Services for Substance Abuse Treatment (ICD-10-PCS; principal; 2019-10-31)
DX: F11.23 Opioid dependence with withdrawal (principal); F13.230 Sedative, hypnotic or anxiolytic dependence with withdrawal, uncomplicated; F12.20 Cannabis dependence, uncomplicated; F17.213 Nicotine dependence, cigarettes, with withdrawal; F41.9 Anxiety disorder, unspecified; B18.2 Chronic viral hepatitis C; D64.9 Anemia, unspecified; Z86.69 Personal history of other diseases of the nervous system and sense organs
CPT/HCPCS: 36415; 80053; 85027; 86593; J0735